=== PATIENT | female | born 1955 | race Caucasian/White ===

== ENCOUNTER 2016-07-14 12:35 | Observation (INO) | payer OTHER ==
[~2016-07-14] VITALS: Ht 158.1 cm; Wt 79.2 kg
[~2016-07-14 12:35] MED LIST: ASPI-113 PO; CHOL1000 PO; LEVO137T3 PO; LORA0.5T12 PO; MELO15TA10 PO; MGN PO; MULTTAB58 PO; OXYC20TA50 PO; PANT40TA PO; PARO1TAB27 PO
--- NOTE | 2016-07-14 14:45 | EMERGENCY ROOM VISIT NOTE ---
History Report prepared by Eleno: Patricia Gambino Under the Supervision of: Dr. Anup Lamb M.D. First contact with patient: 14:27 Chief Complaint: DIZZY Stated Complaint: DIZZY, SOB, HAND NUMB, HOT FLASHES Nursing Triage Summary: Pt c/o dizziness, off and on for months. Was scheduled for heart catheterization in [place] tomorrow. Pt states she was having symptoms for which she was treated for Lyme disease, test came back negative. Last night had blurred vision while bowling. History of Present Illness The patient is a 60 year old female who presents to the Emergency Room with complaints of intermittent dizziness episodes over the past several months. The patient states that during the episodes she also feels short of breath, tired, and diaphoretic. She also occasionally will have numbness in her legs, hands, or face, but she does not have numbness during every episode. Per patient's , the patient seems to be very diaphoretic after walking short distances. The patient was worked up by Dr. Saravia and had a stress test and echocardiogram. At points during the stress test she felt sweaty and short of breath. Dr. Saravia was concerned that something was going on but he is not sure what. She was referred to [place] for a catheterization but has yet to schedule it because of insurance issues. The patient also had a left leg ultrasound due to swelling which was unrevealing. Her leg is still swollen. Last night the patient started having an episode of the previously described symptoms. She woke up during the night twice feeling short of breath despite wearing a C-pap. She also notes that her legs got hot and then numb and her face was numb. She called Dr. Saravia's office about her symptoms and was referred to the ER. En route to the ER, she notes that she had some chest pressure. She is not a smoker. The patient is on Paxil, Protonix, and lorazepam. She does not take any inhalers. Per patient's , the patient had 2 bites on her leg this past January and was tested for Lyme 3 weeks ago which was negative. She was put on Doxycycline for 14 days at that time. She finished it Wednesday. She did not have any adverse reactions while on antibiotics. She does not recall a significant family history of heart disease. Source of History: patient Onset: several months ago Position: other (global) Quality: other (dizzy) Timing: intermittent Associated Symptoms: + SOB, + diaphoresis, + fatigue, + numbness Review of Systems See HPI for pertinent positives & negatives. A total of 10 systems reviewed and were otherwise negative. Past Medical & Surgical Medical Problems: (1) Chest pain (2) Chronic interstitial cystitis (3) HYPOTHYROIDISM NOS Family History Alzheimer's disease Social History Smoking Status: Never Smoker Marital Status: Housing Status: lives with significant other Current/Historical Medications Scheduled Cholecalciferol (Vitamin D3), 2,000 INTER.UNIT PO DAILY Levothyroxine Sodium (Synthroid), 125 MCG PO DAILY Magnesium Oxide (Mag-Ox), 400 MG PO Q2D Magnesium Oxide (Mag-Ox), 800 MG PO Q2D Meloxicam (Mobic), 15 MG PO DAILY Multiple Vitamin (Multivitamin), 1 TAB PO DAILY Pantoprazole (Protonix), 40 MG PO BID Paroxetine (Paxil), 20 MG PO BID Scheduled PRN Lorazepam (Lorazepam), 0.5 MG PO Q8H PRN Allergies Coded Allergies: Pentosan Polysulfate (Verified Allergy, Mild, 07/14/16) Amitriptyline (Verified Allergy, Unknown, 07/14/16) Latex1 -Allergic Contact Dermititis (Verified Allergy, Unknown, 07/14/16) Terbinafine (Verified Allergy, Unknown, 07/14/16) Verapamil (Verified Allergy, Unknown, 07/14/16) Aspirin (Verified Adverse Reaction, Mild, GI UPSET, 07/14/16) GI UPSET Codeine (Verified Adverse Reaction, Mild, N/V, 07/14/16) N/V Morphine (Verified Adverse Reaction, Mild, N/V, 07/14/16) N/V Physical Exam Vital Signs Date Time Temp Pulse Resp B/P Pulse Ox O2 Delivery O2 Flow Rate FiO2 07/14/16 21:08 88 19 116/82 98 07/14/16 20:41 88 19 116/82 98 Room Air 07/14/16 18:19 84 18 136/91 96 Room Air 07/14/16 17:05 83 07/14/16 16:58 88 20 115/70 94 Room Air 07/14/16 15:23 83 18 125/87 100 Room Air 07/14/16 15:19 100 Room Air 07/14/16 15:19 100 Room Air 07/14/16 14:42 82 18 129/92 95 Room Air 07/14/16 12:48 36.7 106 20 149/93 97 Room Air Physical Exam GENERAL: Patient is a healthy-appearing well-nourished 60 year old female HEAD: Normocephalic atraumatic EYES: Ocular movements intact pupils equal and react to light OROPHARYNX mucous membranes are moist no exudates present no erythema or edema present NECK: Supple no nuchal rigidity CHEST: Good equal expansion LUNGS: Clear and equal to auscultation CARDIAC: Normal S1 and S2 ABDOMEN: Soft nontender no guarding BACK: No CVA tenderness EXTREMITIES: No pain upon palpation normal muscle strength in all groups no clubbing cyanosis or edema NEURO: Patient is following commands is answering questions appropriately. Alert and oriented x3 Cranial Nerves 2-12 grossly intact Medical Decision & Procedures ER Provider Diagnostic Interpretation: Radiology results as stated below per my review and radiologist interpretation: CHEST ONE VIEW PORTABLE CLINICAL HISTORY: Chest pain. COMPARISON STUDY: Chest radiograph March 10, 2013. FINDINGS: Lung volumes are normal. Lungs are clear. There is no pneumothorax or pleural effusion. Cardiac size is normal. Mediastinal contours are normal. There is no evidence of pulmonary edema. IMPRESSION: No acute cardiopulmonary findings. Electronically signed by: Oscar Campos M.D. 07/14/2016 3:00 PM Dictated Date/Time: 07/14/2016 2:59 PM ULTRASOUND LEFT LOWER EXTREMITY VENOUS CLINICAL HISTORY: Left leg pain. COMPARISON STUDY: No priors. TECHNIQUE: Real-time, grayscale, and color Doppler sonography of the deep veins of the left lower extremity was performed from the inguinal crease to the calf. Compression and augmentation were utilized. FINDINGS: There is no sonographic evidence of deep venous thrombosis identified in the left lower extremity. The common femoral, superficial femoral, and popliteal veins are patent and normally compressible. The greater saphenous vein and the profunda femoris vein at the junction with the common femoral vein are clear. The visualized calf veins are patent. There is a small complex hypoechoic ovoid nodular structure identified in the medial left calf indicated site of interest. This measures 2.9 x 0.8 x 2.0 cm, and internal flow is shown on color imaging. This may be intramuscular in location. IMPRESSION: 1. There is no sonographic evidence of deep venous thrombosis identified in the left lower extremity. 2. There is a 2.9 cm heterogeneously hypoechoic nodular structure in the medial left calf. There is minimal internal flow suggested on color imaging. A soft tissue lesion such as a nerve sheath tumor is not excluded. Clinical correlation will be required. This lesion is reportedly palpable, and if clinically warranted a nonemergent contrast-enhanced MRI could be considered for further interrogation. Electronically signed by: Willis Randle M.D. 07/14/2016 4:15 PM Dictated Date/Time: 07/14/2016 4:10 PM Laboratory Results 07/14/16 15:20 Red Blood Count 4.55, Mean Corpuscular Volume 93.4, Mean Corpuscular Hemoglobin 32.7, Mean Corpuscular Hemoglobin Concent 35.1, Mean Platelet Volume 9.4, Neutrophils (%) (Auto) 57.3, Lymphocytes (%) (Auto) 31.1, Monocytes (%) (Auto) 9.4, Eosinophils (%) (Auto) 2.0, Basophils (%) (Auto) 0.0, Neutrophils # (Auto) 3.46, Lymphocytes # (Auto) 1.88, Monocytes # (Auto) 0.57, Eosinophils # (Auto) 0.12, Basophils # (Auto) 0.00 07/14/16 15:20 Test 07/14/16 15:20 07/14/16 15:24 07/14/16 15:32 White Blood Count 6.04 K/uL (4.8-10.8) Red Blood Count 4.55 M/uL (4.2-5.4) Hemoglobin 14.9 g/dL (12.0-16.0) Hematocrit 42.5 % (37-47) Mean Corpuscular Volume 93.4 fL (80-100) Mean Corpuscular Hemoglobin 32.7 pg (25-34) Mean Corpuscular Hemoglobin Concent 35.1 g/dl (32-36) Platelet Count 297 K/uL (130-400) Mean Platelet Volume 9.4 fL (7.4-10.4) Neutrophils (%) (Auto) 57.3 % Lymphocytes (%) (Auto) 31.1 % Monocytes (%) (Auto) 9.4 % Eosinophils (%) (Auto) 2.0 % Basophils (%) (Auto) 0.0 % Neutrophils # (Auto) 3.46 K/uL (1.4-6.5) Lymphocytes # (Auto) 1.88 K/uL (1.2-3.4) Monocytes # (Auto) 0.57 K/uL (0.11-0.59) Eosinophils # (Auto) 0.12 K/uL (0-0.5) Basophils # (Auto) 0.00 K/uL (0-0.2) RDW Standard Deviation 45.2 fL (36.4-46.3) RDW Coefficient of Variation 13.3 % (11.5-14.5) Immature Granulocyte % (Auto) 0.2 % Immature Granulocyte # (Auto) 0.01 K/uL (0.00-0.02) Est Creatinine Clear Calc Drug Dose 52.8 ml/min Estimated GFR () 62.8 Estimated GFR (Non- 54.1 BUN/Creatinine Ratio 15.6 (10-20) Calcium Level 9.1 mg/dl (8.5-10.1) Total Bilirubin 0.4 mg/dl (0.2-1) Direct Bilirubin < 0.1 mg/dl (0-0.2) Aspartate Amino Transf (AST/SGOT) 26 U/L (15-37) Alanine Aminotransferase (ALT/SGPT) 32 U/L (12-78) Alkaline Phosphatase 91 U/L (45-117) Total Creatine Kinase 103 U/L (26-192) Creatine Kinase MB 0.8 ng/ml (0.5-3.6) Creatine Kinase MB Ratio 0.8 (0-3.0) Troponin I < 0.015 ng/ml (0-0.045) Total Protein 8.0 gm/dl (6.4-8.2) Albumin 3.9 gm/dl (3.4-5.0) Lipase 163 U/L (73-393) Lyme Disease IgG Antibody NEG (NEG) Lyme Disease IgM Antibody NEG (NEG) Monoscreen NEG (NEG) Bedside Hemoglobin 15.0 g/dl (12.0-16.0) Bedside Hematocrit 44 % (37-47) Bedside Sodium 141 mEq/L (135-144) Bedside Potassium 4.1 mEq/L (3.3-5.0) Bedside Chloride 104 mEq/L (101-112) Bedside Total CO2 25 mEq/l (24-31) Anion Gap 18.0 mmol/L (16-25) Bedside Blood Urea Nitrogen 19 mg/dl (7-18) Bedside Creatinine 0.9 mg/dl (0.6-1.3) Bedside Glucose (other) 106 mg/dl (70-99) Bedside Ionized Calcium (Roxanne) 1.18 mmol/l (1.12-1.32) Bedside D-Dimer 333 ng/mlFEU (0-450) Labs reviewed by ED physician. Medications Administered Medications (Trade) Dose Ordered Sig/Hossein Route Start Time Stop Time Status Last Admin Dose Admin Albuterol/ Ipratropium (Duoneb) 3 ml NOW STAT INH 07/14/16 14:51 07/14/16 14:52 DC 07/14/16 15:13 3 ML Acetaminophen (Tylenol Tab) 1,000 mg NOW STAT PO 07/14/16 17:37 07/14/16 17:38 DC 07/14/16 20:47 1,000 MG Pantoprazole Sodium (Protonix Tab) 40 mg BID PO 07/14/16 21:00 08/13/16 20:59 07/14/16 22:12 40 MG Paroxetine HCl (pAXil TAB) 20 mg BID PO 07/14/16 21:00 08/13/16 20:59 07/14/16 22:12 20 MG ECG Indication: SOB/dyspnea Rate (beats per minute): 78 Rhythm: normal sinus Findings: no acute ischemic change, no ectopy ED Course 1431: Past medical records reviewed. The patient was evaluated in room C12B. A complete history and physical examination was performed. 1451: Ordered DuoNeb 3 ml INH. 1737: Upon reexamination the patient is resting comfortably. I discussed results and treatment plan with the patient. She verbalizes agreement and understanding. Ordered Tylenol Tab 1000 mg PO. 1805: I discussed the case with Dr. Bashir [facility]. He said to speak with internal medicine about the patient. 1840: I discussed the case with Dr. Stout - [facility]. The patient will be evaluated for further management. Medical Decision Differential diagnosis: Etiologies such as cardiac ischemia, aortic dissection, pulmonary embolism, pneumonia, pneumothorax, musculoskeletal, infections, pericarditis, myocarditis , esophageal rupture, gastrointestinal, as well as others were entertained. This is a 60-year-old female who presents emergency department complaining of hot flashes along with chest pain. The problem has been going on for the past several months. In addition the patient apparently had an abnormal stress test performed by cardiology as an outpatient. She was expected to follow-up with [place] however she has been having palpitations throughout the evening. She has a negative d-dimer chest x-ray does not show any acute evidence of pneumonia or pneumothorax. CK-MB troponin functions are all normal. I gave the patient the option of following up with cardiology tomorrow however she is asking to be admitted. I did discuss the case with both cardiology as well as the hospitalist service who agreed to admit the patient. Patient and were in agreement with the treatment plan. Consults Time Called: 1740 Consulting Physician: Dr. Bashir [facility] Returned Call: [phone] I discussed the case with him. He said to speak with internal medicine about the patient. Additional Consults: Time Called: [phone] Consulted Physician: Dr. Girish Woods [facility] Returned Call: [phone] Additional Comments: I discussed the case with him. The patient will be evaluated for further management. Impression Primary Impression: Precordial chest pain Scribe Attestation The scribe's documentation has been prepared under my direction and personally reviewed by me in its entirety. I confirm that the note above accurately reflects all work, treatment, procedures, and medical decision making performed by me. Departure Information Dispostion Being Evaluated By Hospitalist Referrals Rich Bearedn M.D. (PCP) Patient Instructions My [facility]
[2016-07-14] MEDS ORDERED: ALBUT/IPRATROP 3MG/0.5MG NEB 3 ML VIAL INH STA (14:51)
[2016-07-14] MEDS ORDERED: LEVO125T72 PO (14:56)
[2016-07-14] MEDS ORDERED: MAGN400T6 PO (14:56)
--- NOTE | 2016-07-14 15:01 | DIAGNOSTIC IMAGING REPORT ---
CHEST ONE VIEW PORTABLE CLINICAL HISTORY: Chest pain. COMPARISON STUDY: Chest radiograph March 10, 2013. FINDINGS: Lung volumes are normal. Lungs are clear. There is no pneumothorax or pleural effusion. Cardiac size is normal. Mediastinal contours are normal. There is no evidence of pulmonary edema. IMPRESSION: No acute cardiopulmonary findings. Electronically signed by: Oscar Campos M.D. 07/14/2016 3:00 PM Dictated Date/Time: 07/14/2016 2:59 PM
[2016-07-14 15:48] LABS: ISTAT CREATININE 0.9 mg/dl (0.6-1.3); ISTAT IONIZED CALCIUM 1.18 mmol/l (1.12-1.32)
[2016-07-14 15:54] LABS: COMPLETE YES; HEMATOCRIT 42.5 % (37-47); IG% 0.2 %; LYMPH % 31.1 %; LYMPH ABS # 1.88 K/uL (1.2-3.4); MEAN CELL VOLUME 93.4 fL (80-100); MEAN CORPUSCULAR HEMOGLOBIN 32.7 pg (25-34); MEAN CORPUSCULAR HGB CONC 35.1 g/dl (32-36); MEAN PLATELET VOLUME 9.4 fL (7.4-10.4); MONO % 9.4 %; NEUT % 57.3 %; PLATELET COUNT 297 K/uL (130-400); RED BLOOD COUNT 4.55 M/uL (4.2-5.4); WHITE BLOOD COUNT 6.04 K/uL (4.8-10.8)
[2016-07-14 16:03] LABS: ALT/SGPT 32 U/L (12-78); BLOOD UREA NITROGEN 17 mg/dl (7-18); BUN/CREATININE RATIO 15.6 (10-20); CALCIUM 9.1 mg/dl (8.5-10.1); CARBON DIOXIDE 24 mmol/L (21-32); CHLORIDE 106 mmol/L (98-107); GLUCOSE 100 mg/dl (70-99); SODIUM 141 mmol/L (136-145)
[2016-07-14 16:08] LABS: ALKALINE PHOSPHATASE 91 U/L (45-117); AST/SGOT 26 U/L (15-37); CKMB/CK RATIO 0.8 (0-3.0)
--- NOTE | 2016-07-14 16:16 | DIAGNOSTIC IMAGING REPORT ---
ULTRASOUND LEFT LOWER EXTREMITY VENOUS CLINICAL HISTORY: Left leg pain. COMPARISON STUDY: No priors. TECHNIQUE: Real-time, grayscale, and color Doppler sonography of the deep veins of the left lower extremity was performed from the inguinal crease to the calf. Compression and augmentation were utilized. FINDINGS: There is no sonographic evidence of deep venous thrombosis identified in the left lower extremity. The common femoral, superficial femoral, and popliteal veins are patent and normally compressible. The greater saphenous vein and the profunda femoris vein at the junction with the common femoral vein are clear. The visualized calf veins are patent. There is a small complex hypoechoic ovoid nodular structure identified in the medial left calf indicated site of interest. This measures 2.9 x 0.8 x 2.0 cm, and internal flow is shown on color imaging. This may be intramuscular in location. IMPRESSION: 1. There is no sonographic evidence of deep venous thrombosis identified in the left lower extremity. 2. There is a 2.9 cm heterogeneously hypoechoic nodular structure in the medial left calf. There is minimal internal flow suggested on color imaging. A soft tissue lesion such as a nerve sheath tumor is not excluded. Clinical correlation will be required. This lesion is reportedly palpable, and if clinically warranted a nonemergent contrast-enhanced MRI could be considered for further interrogation. Electronically signed by: Willis Randle M.D. 07/14/2016 4:15 PM Dictated Date/Time: 07/14/2016 4:10 PM
[2016-07-14 16:36] LABS: LYME DISEASE AB IGG NEG (NEG); LYME DISEASE AB IGM NEG (NEG)
[2016-07-14] MEDS ORDERED: ACETAMINOPHEN 500 MG TAB PO STA (17:37)
[2016-07-14] MEDS ORDERED: NITROGLYCERIN 0.4 MG SL PER TAB CHARGE SL PRN (19:30)
[2016-07-14] MEDS ORDERED: ONDANSETRON INJ 2 MG/ML 2 ML VIAL IV PRN (19:30)
[2016-07-14] MEDS ORDERED: LORAZEPAM 0.5 MG TAB PO PRN (19:30)
[2016-07-14] MEDS ORDERED: ALUMINUM/MAGNESIUM/SIMETH (MAALOX MAX) 30 ML UDC PO PRN (19:30)
[2016-07-14] MEDS ORDERED: POLYETHYLENE (MIRALAX) 17 GM PACK PO PRN (19:30)
--- NOTE | 2016-07-14 20:12 | History and Physical ---
History & Physical Date & Time of Service: Jul 14, 2016 at 19:35 Chief Complaint: Dizzy, Sob, Hand Numb, Hot Flashes Primary Care Physician: Rich Bearden M.D. History of Present Illness Source: patient, family This is a 60 yo F with PMHx of MITCH on cpap, GERD, anxiety with hx of panic attacks, fibromyalgia, intermittent chest pain worked up by Dr. Quinn as outpatient, chronic interstitial cystitis, and hypothyroidism who presents with left sided chest pain pressure, worsening shortness of breath, easy fatigue with ADLs, diaphoresis, hand and arm tingling/numbness. She feels that she gets easily sweaty and lightheaded after walking short distances. She must sit down and not move for her symptoms to resolve. She notes these same symptoms have been happening on and off for several months now. She recently had a stress test performed in May 2016 without definite findings for causing her sx. Her last Echo was done in Mar 2016 with preserved EF and without acute findings. She was supposed to have a cardiac cath completed at [place] tomorrow but insurance would not cover it. Pt reports she was instructed by Dr. Quinn to come here to the ED for worsening symptoms. Initial Trop is negative.Labs are unremarkable. EKG is NSR without ST wave changes or signs of ischemia. Past Medical/Surgical History Medical Problems: (1) Chronic interstitial cystitis Status: Chronic (2) HYPOTHYROIDISM NOS Status: Chronic 3. MITCH on cpap 4. GERD 5. Anxiety 6. Depression 7. Fibromyalgia Family History Alzheimer's disease Social History Smoking Status: Never Smoker Smokeless Tobacco Use: No Alcohol Use: none Drug Use: none Marital Status: Housing status: lives with family Immunizations History of Influenza Vaccine: No Influenza Vaccine Date: Apr 03, 2008 History of Tetanus Vaccine?: Yes Tetanus Immunization Date: Oct 03, 2007 History of Pneumococcal: No History of Hepatitis B Vaccine: No Multi-Drug Resistant Organisms History of MDRO: No Allergies Coded Allergies: Pentosan Polysulfate (Verified Allergy, Mild, 07/14/16) Amitriptyline (Verified Allergy, Unknown, 07/14/16) Latex1 -Allergic Contact Dermititis (Verified Allergy, Unknown, 07/14/16) Terbinafine (Verified Allergy, Unknown, 07/14/16) Verapamil (Verified Allergy, Unknown, 07/14/16) Aspirin (Verified Adverse Reaction, Mild, GI UPSET, 07/14/16) GI UPSET Codeine (Verified Adverse Reaction, Mild, N/V, 07/14/16) N/V Morphine (Verified Adverse Reaction, Mild, N/V, 07/14/16) N/V Home Medications Scheduled Cholecalciferol (Vitamin D3), 2,000 INTER.UNIT PO DAILY Levothyroxine Sodium (Synthroid), 125 MCG PO DAILY Magnesium Oxide (Mag-Ox), 400 MG PO Q2D Magnesium Oxide (Mag-Ox), 800 MG PO Q2D Meloxicam (Mobic), 15 MG PO DAILY Multiple Vitamin (Multivitamin), 1 TAB PO DAILY Pantoprazole (Protonix), 40 MG PO BID Paroxetine (Paxil), 20 MG PO BID Scheduled PRN Lorazepam (Lorazepam), 0.5 MG PO Q8H PRN Review of Systems Constitutional: No chills, No fever, No weakness Eyes: No problem reported ENT: No problem reported Respiratory: + dyspnea on exertion, + shortness of breath, No cough, No dyspnea at rest, No sputum Cardiovascular: No edema, No orthopnea, No palpitations Abdomen: + nausea, No pain, No vomiting Musculoskeletal: + calf pain (LLE), No joint pain, No swelling Genitourinary - Female: + problem reported (interstitial cystitis) Neurologic: + numbness/tingling (as per HPI) Psychiatric: + anxiety Endocrine: + fatigue Integumentary: No itch, No rash Physical Exam Vital Signs Date Time Temp Pulse Resp B/P Pulse Ox O2 Delivery O2 Flow Rate FiO2 07/14/16 18:19 84 18 136/91 96 Room Air 07/14/16 17:05 83 07/14/16 16:58 88 20 115/70 94 Room Air 07/14/16 15:23 83 18 125/87 100 Room Air 07/14/16 15:19 100 Room Air 07/14/16 15:19 100 Room Air 07/14/16 14:42 82 18 129/92 95 Room Air 07/14/16 12:48 36.7 106 20 149/93 97 Room Air General Appearance: WD/WN, no apparent distress, + obese Head: normocephalic, atraumatic Eyes: PERRL, EOMI ENT: hearing grossly normal, pharynx normal Neck: supple, no JVD Respiratory/Chest: chest non-tender, lungs clear, normal breath sounds, no respiratory distress, no accessory muscle use Cardiovascular: regular rate, rhythm, no murmur, normal peripheral pulses Abdomen/GI: normal bowel sounds, non tender, soft Back: no CVA tenderness Extremities/Musculoskelatal: no calf tenderness, no pedal edema, + pertinent finding (LLE tenderness medial posterior portion of the ankle.) Neurologic/Psych: alert, normal mood/affect, oriented x 3 Skin: normal color, warm/dry Diagnostics Laboratory Results Results Past 24 Hours Test 07/14/16 15:20 07/14/16 15:24 07/14/16 15:32 Range/Units White Blood Count 6.04 4.8-10.8 K/uL Red Blood Count 4.55 4.2-5.4 M/uL Hemoglobin 14.9 12.0-16.0 g/dL Hematocrit 42.5 37-47 % Mean Corpuscular Volume 93.4 80-100 fL Mean Corpuscular Hemoglobin 32.7 25-34 pg Mean Corpuscular Hemoglobin Concent 35.1 32-36 g/dl Platelet Count 297 130-400 K/uL Mean Platelet Volume 9.4 7.4-10.4 fL Neutrophils (%) (Auto) 57.3 % Lymphocytes (%) (Auto) 31.1 % Monocytes (%) (Auto) 9.4 % Eosinophils (%) (Auto) 2.0 % Basophils (%) (Auto) 0.0 % Neutrophils # (Auto) 3.46 1.4-6.5 K/uL Lymphocytes # (Auto) 1.88 1.2-3.4 K/uL Monocytes # (Auto) 0.57 0.11-0.59 K/uL Eosinophils # (Auto) 0.12 0-0.5 K/uL Basophils # (Auto) 0.00 0-0.2 K/uL RDW Standard Deviation 45.2 36.4-46.3 fL RDW Coefficient of Variation 13.3 11.5-14.5 % Immature Granulocyte % (Auto) 0.2 % Immature Granulocyte # (Auto) 0.01 0.00-0.02 K/uL Sodium Level 141 136-145 mmol/L Potassium Level 4.0 3.5-5.1 mmol/L Chloride Level 106 98-107 mmol/L Carbon Dioxide Level 24 21-32 mmol/L Anion Gap 11.0 18.0 16-25 mmol/L Blood Urea Nitrogen 17 7-18 mg/dl Creatinine 1.10 0.60-1.20 mg/dl Est Creatinine Clear Calc Drug Dose 52.8 ml/min Estimated GFR () 62.8 Estimated GFR (Non- 54.1 BUN/Creatinine Ratio 15.6 10-20 Random Glucose 100 70-99 mg/dl Calcium Level 9.1 8.5-10.1 mg/dl Total Bilirubin 0.4 0.2-1 mg/dl Direct Bilirubin < 0.1 0-0.2 mg/dl Aspartate Amino Transf (AST/SGOT) 26 15-37 U/L Alanine Aminotransferase (ALT/SGPT) 32 12-78 U/L Alkaline Phosphatase 91 45-117 U/L Total Creatine Kinase 103 26-192 U/L Creatine Kinase MB 0.8 0.5-3.6 ng/ml Creatine Kinase MB Ratio 0.8 0-3.0 Troponin I < 0.015 0-0.045 ng/ml Total Protein 8.0 6.4-8.2 gm/dl Albumin 3.9 3.4-5.0 gm/dl Lipase 163 73-393 U/L Lyme Disease IgG Antibody NEG NEG Lyme Disease IgM Antibody NEG NEG Monoscreen NEG NEG Bedside Hemoglobin 15.0 12.0-16.0 g/dl Bedside Hematocrit 44 37-47 % Bedside Sodium 141 135-144 mEq/L Bedside Potassium 4.1 3.3-5.0 mEq/L Bedside Chloride 104 101-112 mEq/L Bedside Total CO2 25 24-31 mEq/l Bedside Blood Urea Nitrogen 19 7-18 mg/dl Bedside Creatinine 0.9 0.6-1.3 mg/dl Bedside Glucose (other) 106 70-99 mg/dl Bedside Ionized Calcium (Roxanne) 1.18 1.12-1.32 mmol/l Bedside D-Dimer 333 0-450 ng/mlFEU Diagnostic Radiology CHEST ONE VIEW PORTABLE CLINICAL HISTORY: Chest pain. COMPARISON STUDY: Chest radiograph March 10, 2013. FINDINGS: Lung volumes are normal. Lungs are clear. There is no pneumothorax or pleural effusion. Cardiac size is normal. Mediastinal contours are normal. There is no evidence of pulmonary edema. IMPRESSION: No acute cardiopulmonary findings. Electronically signed by: Oscar Campos M.D. 07/14/2016 3:00 PM Dictated Date/Time: 07/14/2016 2:59 PM The status of this report is Signed. ULTRASOUND LEFT LOWER EXTREMITY VENOUS CLINICAL HISTORY: Left leg pain. COMPARISON STUDY: No priors. TECHNIQUE: Real-time, grayscale, and color Doppler sonography of the deep veins of the left lower extremity was performed from the inguinal crease to the calf. Compression and augmentation were utilized. FINDINGS: There is no sonographic evidence of deep venous thrombosis identified in the left lower extremity. The common femoral, superficial femoral, and popliteal veins are patent and normally compressible. The greater saphenous vein and the profunda femoris vein at the junction with the common femoral vein are clear. The visualized calf veins are patent. There is a small complex hypoechoic ovoid nodular structure identified in the medial left calf indicated site of interest. This measures 2.9 x 0.8 x 2.0 cm, and internal flow is shown on color imaging. This may be intramuscular in location. IMPRESSION: 1. There is no sonographic evidence of deep venous thrombosis identified in the left lower extremity. 2. There is a 2.9 cm heterogeneously hypoechoic nodular structure in the medial left calf. There is minimal internal flow suggested on color imaging. A soft tissue lesion such as a nerve sheath tumor is not excluded. Clinical correlation will be required. This lesion is reportedly palpable, and if clinically warranted a nonemergent contrast-enhanced MRI could be considered for further interrogation. Electronically signed by: Willis Randle M.D. 07/14/2016 4:15 PM Dictated Date/Time: 07/14/2016 4:10 PM The status of this report is Signed. EKG Vent. rate 78 BPM OR interval 150 ms QRS duration 84 ms QT/QTc 370/421 ms P-R-T axes 45 -[address] wave abnormalities or ischemic changes Impression Assessment and Plan This is a 60 yo F with PMHx of MITCH on cpap, GERD, anxiety with hx of panic attacks, fibromyalgia, intermittent chest pain worked up by Dr. Quinn as outpatient, chronic interstitial cystitis, and hypothyroidism who presents with left sided chest pain pressure, worsening shortness of breath, easy fatigue with ADLs, diaphoresis, hand and arm tingling/numbness. Chest Pain/ Shortness of breath/ presyncopal episodes with associated warm sensation and lightheadedness/ decline in physical exercise capacity - Tele obs - Last stress test completed on 05/21/16 which showed deconditioned hemodynamic response to exercise. Heart rate recovery at 1 min was 34 bpm. Normal LV wall motion response to exercies. Left ventricle becomes smaller and more vigorous with exercise. Improved global left ventricular function with exercise. Conclusions: negative exercise ECG for ischemia. Negative stres echocardiogram for ischemia at 103 %MPHR. Below average exericse tolerance for age and gender, 83% of predicted, achieving 5.7 METs. - Last ECHO completed 03/11/2016 wit LVEF of 65%, normal LV size and systolic function with no regional wall motion abnormalities. No ventricular hypertrophy. Grade 1 diastolic dysfunction of the left ventricle (impaired relaxation patterm). Hypermobile intra atrial septum c/w atrial septal aneurysm. - Follows with Dr. Quinn as an outpatient At last visit he was considering a coronary CT angiograpy to rule out obstructive coronary disease, and also suggested she'd benefit from toprol-Xl to try to slow HR, improve diastolic filling, and improve her forward stroke volume with activity - 1st troponin is negative. Will trend with CKMB to r/o cardiac event although this is unlikely - EKG was reviewed; NSR without ischemic or ST wave changes or inversions. Obstructive Sleep Apnea - Uses nocturnal cpap Depression/Anxiety: - Cont lorazepam 0.5 mg TID prn for anxiety - Cont Prozac 20 mg BID GERD- continue protonix Interstitial Cystitis, nephritis - Follow with urology - Currently without complaints regarding dysuria, hematuria DVT ppx: SCDs, OOB CODE STATUS: FULL CODE Disposition: From home. Level of Care Telemetry Resuscitation Status FULL RESUSCITATION VTE Prophylaxis VTE Risk Assessment Done? Y/N: Yes Risk Level: Low Given or contraindicated: SCD's Reviewed: Pt Seen/Exam by Me, RN Notes, HO Notes, Prior Records, Labs, RAD History I agree with PA H&P with some modifications as below This is a 60 yo F with PMHx of MITCH on cpap, GERD, anxiety with hx of panic attacks, fibromyalgia, intermittent chest pain worked up by Dr. Quinn as outpatient, chronic interstitial cystitis, and hypothyroidism who presents with left sided chest pain pressure, worsening shortness of breath, easy fatigue with ADLs, diaphoresis, hand and arm tingling/numbness. Constitutional: denies: chills Respiratory: negative: cough Cardiovascular: denies chest pain Gastrointestinal/Abdominal: negative: abdominal pain Genitourinary: negative discharge Musculoskeletal: negative: back pain Neurological/Psych: negative: anxiety Hematologic/Lymphatic: negative: anemia General Appearance: WD/WN, no apparent distress Eye Exam: bilateral eye normal inspection Ears, Nose, Throat: hearing grossly normal, pharynx normal Neck: non-tender, supple Respiratory: lungs clear, normal breath sounds Cardiovascular: no edema, no gallop Gastrointestinal: normal bowel sounds, soft Extremities: non-tender, no pedal edema Neurologic/Psychiatric: alert Skin Characteristics: normal color Assessment/Plan This is a 60 yo F with PMHx of MITCH on cpap, GERD, anxiety with hx of panic attacks, fibromyalgia, intermittent chest pain worked up by Dr. Quinn as outpatient, chronic interstitial cystitis, and hypothyroidism who presents with left sided chest pain pressure, worsening shortness of breath, easy fatigue with ADLs, diaphoresis, hand and arm tingling/numbness. Chest Pain/ Shortness of breath/ presyncopal episodes with associated warm sensation and lightheadedness/ decline in physical exercise capacity admit tele Last stress test completed on 05/21/16 which showed deconditioned hemodynamic response to exercise. Heart rate recovery at 1 min was 34 bpm. Normal LV wall motion response to exercise. Left ventricle becomes smaller and more vigorous with exercise. Improved global left ventricular function with exercise. Conclusions: negative exercise ECG for ischemia. Negative stres echocardiogram for ischemia at 103 %MPHR. Below average exericse tolerance for age and gender, 83% of predicted, achieving 5.7 METs. Last ECHO completed 03/11/2016 wit LVEF of 65%, normal LV size and systolic function with no regional wall motion abnormalities. No ventricular hypertrophy. Grade 1 diastolic dysfunction of the left ventricle (impaired relaxation patterm). Hypermobile intra atrial septum c/w atrial septal aneurysm. Follows with Dr. Quinn as an outpatient, patient has appointment at [facility] tomorrow for cardiac cath, it was postponed due to insurance issues according to the patient will keep patient NPO PM At last visit he was considering a coronary CT angiograpy to rule out obstructive coronary disease, and also suggested she'd benefit from toprol-Xl to try to slow HR, improve diastolic filling, and improve her forward stroke volume with activity trend with CKMB to r/o cardiac event although this is unlikely EKG was reviewed; NSR without ischemic or ST wave changes or inversions. Obstructive Sleep Apnea Uses nocturnal cpap Depression/Anxiety: Cont lorazepam 0.5 mg TID prn for anxiety Cont Prozac 20 mg BID GERD, continue protonix Interstitial Cystitis, nephritis Follow with urology Currently without complaints regarding dysuria, hematuria DVT proph: SCDs, OOB CODE STATUS: FULL CODE Disposition: From home. case discussed with AYDE Sosa time spent 40 min
[2016-07-14] MEDS ORDERED: IV FLUIDS COMPLETED PRN (20:15)
[2016-07-14] MEDS ORDERED: ACETAMINOPHEN 500 MG TAB PO ONE (20:44)
[2016-07-14] MEDS: PANTOprazole SOD 40 MG TAB PO SCH (22:12)
[2016-07-14] MEDS: PAROXETINE 20 MG TAB PO SCH (22:12)
[2016-07-14 22:40] VITALS: BP 134/79; PULSE 91; TEMP 37; O2SAT 97; Ht 158.1 cm; Wt 79.2 kg
[2016-07-15] VITALS (13 sets, daily range): BP systolic 90–119; BP diastolic 62–77; PULSE 82–96; TEMP 36.4–37; O2SAT 95–97
[2016-07-15] MEDS ORDERED: LEVOTHYROXINE 125 MCG TAB PO SCH (06:30)
--- NOTE | 2016-07-15 07:18 | DIAGNOSTIC IMAGING REPORT ---
CT SCAN OF THE CERVICAL SPINE CLINICAL HISTORY: Hand numbness. Cervical stenosis. Dizziness. COMPARISON STUDY: Radiographs of the cervical spine dated 06/21/2008. TECHNIQUE: CT scan of the cervical spine is performed from the skull base to the upper thoracic spine. Images are reviewed in the axial, sagittal, and coronal planes. IV contrast was not administered for this examination. CT DOSE: 221.38 mGy.cm FINDINGS: Skeletal structures: The skeletal structures are osteopenic. There is no evidence of fracture or subluxation involving the cervical spine. Vertebral body height and alignment are maintained. There is straightening of the cervical lordosis. The odontoid process and lateral masses are intact. The atlantoaxial articulation is preserved noting productive degenerative change. The spinous processes appear intact. Small anterior osteophytes are noted in the lower cervical region. No significant facet arthropathy or neural foraminal stenosis is identified. Intervertebral discs: The disc spaces are well maintained. Central canal: Widely patent. Soft tissues: The prevertebral and paraspinous soft tissues are within normal limits. Calvarium: The visualized calvarium at the skull base appears intact. Brain parenchyma: Partially visualized brain parenchyma the skull base is within normal limits. Sinuses and mastoids: There is trace fluid within the right sphenoid sinus. The mastoid air cells are well pneumatized. Lung apices: Clear as visualized. IMPRESSION: There is no evidence of fracture or subluxation involving the cervical spine. Electronically signed by: Willis Randle M.D. 07/15/2016 7:16 AM Dictated Date/Time: 07/15/2016 7:13 AM
[2016-07-15] MEDS: PAROXETINE 20 MG TAB PO SCH (08:58)
[2016-07-15] MEDS: PANTOprazole SOD 40 MG TAB PO SCH (08:58)
[2016-07-15] MEDS ORDERED: MAGNESIUM OXIDE 400 MG TAB PO SCH (09:00)
[2016-07-15] MEDS: MELOXICAM 7.5 MG TAB PO SCH ×2 (09:00→14:02)
[2016-07-15] MEDS ORDERED: CHOLECALCIFEROL 1000 INTER.UNIT TAB PO SCH (09:00)
[2016-07-15] MEDS ORDERED: NiCARDipine HCL INJ 2.5 MG/ML 10 ML AMP ONE (10:36)
[2016-07-15] MEDS ORDERED: HEPARIN SOD (PORCINE) 1000 UNIT/ML 10 ML VIAL ONE (10:37)
[2016-07-15] MEDS ORDERED: MIDAZOLAM HCL 1 MG/ML 2ML VIAL ONE ×3 (10:37→11:55)
[2016-07-15] MEDS ORDERED: FENTANYL CITRATE INJ 50 MCG/1 ML 2 ML VIAL ONE ×2 (10:37→11:55)
[2016-07-15] MEDS ORDERED: NITROGLYCERIN/D5W 100MCG/ML 20ML SYR ONE (10:37)
--- NOTE | 2016-07-15 10:56 | CARDIOLOGY CONSULTATION ---
DATE OF CONSULTATION: 07/15/2016 DATE OF CONSULTATION: 07/15/2016. REQUESTING: Dr. Josué Acevedo. WEB ANALYST: Julian Quinn D.O., [facility]. Dear Josué: Thank you for requesting cardiology consultation on Missy with regards to her progressive shortness of breath, lightheadedness and dizziness with activity. As you know, she is a very pleasant 60-year-old female who we have seen as an outpatient with progressive dyspnea on exertion. She now notes even bowling 2 balls this past Wednesday she had profound shortness of breath, nausea, felt like she was going to vomit, weakness. She had to site for half hour before she recovered. Over the last 3 months it has become more and more progressive. She did undergo stress echocardiography as an outpatient which revealed no evidence of ischemia May 2016. Her RV size and function was normal and there was nothing to suggest pulmonary hypertension. Given her progressive symptoms which are actually witnessed in the office as we did an ultrasound to rule out a DVT last week which was negative, but she just getting her shoes and socks on she was profoundly short of breath. We are arranging for outpatient cardiac catheterization. Her insurance refused to pay for the catheterization and instead recommend that she have a coronary CT angiography and right heart catheterization instead. She called the office yesterday with even more progressive shortness of breath after Wednesday evening and we recommended she come to the Emergency Room for further evaluation. Her troponins are negative. Her EKG is normal. As discussed above, she notes progressive dyspnea. She denies any PND or orthopnea. She had 8/10 shortness of breath on the treadmill, but no ischemic changes. She denies any palpitations or fluttering. She does describe weight gain. She also described some additional sweating. She denies any lower extremity edema, symptoms of claudication. Her appetite is stable. She denies any bleeding, bruising, dark stools, black stools. She has some musculoskeletal discomfort. She has some discomfort between her shoulder blades as well. She had a previous cholecystectomy. The rest of review of systems otherwise negative. FAMILY HISTORY: Mom at 88 of dementia and cancer. Dad at 75 hip fracture. She has a brother who is living. SOCIAL HISTORY: She is . She denies any tobacco. She rarely drinks alcohol. She is a homemaker. Previously drove a school bus. PAST MEDICAL HISTORY: 1. Negative stress echo for ischemia May 2016 with normal left ventricular size and function, normal right ventricular size and function and no evidence of pulmonary hypertension. 2. Obstructive sleep apnea, tolerating CPAP. 3. Gastroesophageal reflux disease with a recently negative EGD. 4. Hypothyroidism. 5. History of panic attacks. 6. Anxiety. 7. Interstitial nephritis. 8. Fibromyalgia. ALLERGIES: TO RANITIDINE, AMITRIPTYLINE, CODEINE, ELMIRON, LATEX, MORPHINE, VERAPAMIL, ZOLOFT AND CODEINE. MEDICATIONS: Reviewed in electronic medical record. PHYSICAL EXAMINATION: GENERAL: She is awake, alert, oriented x3. She is in no acute distress, well-appearing female. VITAL SIGNS: Her pulse is 95, respirations 18, blood pressure 105/71. Her sats 97% on room air. HEAD, EYES, EARS, NOSE, AND THROAT: 1+ carotid upstrokes. No evidence of carotid bruits. Jugular venous pressure appeared normal. Sclerae is anicteric. Hearing is normal. LUNGS: Clear to auscultation bilaterally. No rales, rhonchi or wheezing. HEART: Regular rate and rhythm. No appreciable murmurs, rubs or gallops. ABDOMEN: Soft, nontender, nondistended, positive bowel sounds. EXTREMITIES: No clubbing, cyanosis or edema. PSYCHIATRIC: Affect appeared appropriate. NEUROLOGIC: Grossly nonfocal. EKG here normal sinus rhythm, normal ECG. LABORATORY DATA: Sodium 141, potassium 4.1, BUN 17, creatinine 1.1. Troponins are negative. Her AST and ALT are normal. Lipase is normal. Her D-dimer was 333. Chest x-ray no acute pulmonary findings. IMPRESSION: 1. Progressive shortness of breath and dyspnea on exertion with a significant decline in her exercise capacity. 2. Second set of symptoms with lightheadedness, dizziness, warm spells. 3. Swelling of her left calf which is negative for DVT by ultrasound. In discussion with Dr. Acevedo we are both in agreement that we should proceed with cardiac catheterization to rule out obstructive coronary artery disease and rule out pulmonary hypertension as a cause for her progressive dyspnea. Additionally, we will be able to assess her cardiac output and rule out low cardiac output state. She has had a number of additional laboratory studies including a negative Dubois screen and negative Lyme titer with EBV antibodies pending. Discussed risks and benefits of cardiac catheterization. Risks include but are not limited to bleeding or infection at the puncture site, damage to radial or femoral arteries, risk of contrast induced nephropathy, allergic reaction to contrast and 1 in 1,000 risk of heart attack, stroke or dying with the procedure were discussed. She understands the risk and wishes to proceed. This was all discussed with Dr. Mosquera and the laborer general staff. She has been n.p.o. after midnight. We thank you for allowing us to participate in her care. Further recommendations will be forthcoming. VALERIE
--- NOTE | 2016-07-15 11:04 | Procedure Note ---
Pre-Mod Sedation Assessment General Date of Moderate Sedation: Jul 15, 2016. Vital Signs: Vital Signs Past 12 Hours Date Time Temp Pulse Resp B/P Pulse Ox O2 Delivery O2 Flow Rate FiO2 07/15/16 08:00 96 Room Air 07/15/16 07:38 36.9 95 18 105/71 97 07/15/16 04:25 36.4 96 18 97/62 96 Room Air 07/15/16 04:00 96 Room Air 07/15/16 00:00 96 Room Air Review Cardiovascular: regular rate, rhythm, no edema, no gallop, no JVD, no murmur, normal peripheral pulses Abdomen: normal bowel sounds, non tender, soft Lungs: lungs clear Pre-Sedation Airway Assessment Oral Cavity: Dental Abnormalities Able to Visualize Vocal Cords: No Short Thick Neck: No Hx of Sleep Apnea: Yes Smoking Status: Never Smoker Mallampati Classification: Class III ASA Classification: Class II Procedure Planning Contraindications-for Mod Sed: None Yes Notes The planned sedation has been discussed with the patient and consent obtained. I have identified the patient, determined the appropriateness of sedation and have assessed the patient immediately prior to the procedure. All medicine(s) and interventions are by my order.
[2016-07-15 13:11] LABS: ISTAT ARTERIAL BLOOD GAS HCO3 23 meq/L (19-24); ISTAT ARTERIAL BLOOD GAS PCO2 46 mmHg (35-46); ISTAT ARTERIAL BLOOD GAS PO2 40 mmHg (80-95); ISTAT ARTERIAL BLOOD GAS pH 7.31 (7.35-7.45); ISTAT CARBON DIOXIDE 25 mEq/l (24-31)
--- NOTE | 2016-07-15 13:19 | Procedure Note ---
Post-Mod Sedation Assessment General Date of Moderate Sedation Jul 15, 2016. Vital Signs: Vital Signs Past 12 Hours Date Time Temp Pulse Resp B/P Pulse Ox O2 Delivery O2 Flow Rate FiO2 07/15/16 13:10 91 18 131/84 96 Room Air 07/15/16 13:05 92 17 124/83 98 Room Air 07/15/16 13:00 94 18 128/81 97 Room Air 07/15/16 08:00 96 Room Air 07/15/16 07:38 36.9 95 18 105/71 97 07/15/16 04:25 36.4 96 18 97/62 96 Room Air 07/15/16 04:00 96 Room Air Review - Discharge Criteria Vital Signs Stable: Yes Alert/Oriented/Conversant: Yes Returned to Baseline Mental St: Yes Nausea Absent/Minimal: Yes Pain/Discomfort/Absent/Minimal: Yes Normal/Baseline Respirations: Yes Active Bleeding?: No Pt Received D/C Instructions: N/A Prescriptions Given: None Specific Proced. D/C Criteria Distal Pulses Present (Cardiac: Yes Groin site assessed-Card Cath: Yes Voided Prior To Discharge: N/A Discharged Patients Adult Escort/Transportation: N/A
[2016-07-15] MEDS ORDERED: ATROPINE SULFATE 0.1 MG/ML 5ML SYR IV PRN (13:30)
[2016-07-15] MEDS ORDERED: ONDANSETRON INJ 2 MG/ML 2 ML VIAL IV PRN (13:30)
[2016-07-15] MEDS ORDERED: ACETAMINOPHEN 325 MG TAB PO PRN (13:30)
[2016-07-15 13:32] LABS: ISTAT ARTERIAL BLOOD GAS HCO3 25 meq/L (19-24); ISTAT ARTERIAL BLOOD GAS PCO2 43 mmHg (35-46); ISTAT ARTERIAL BLOOD GAS PO2 70 mmHg (80-95); ISTAT ARTERIAL BLOOD GAS pH 7.37 (7.35-7.45); ISTAT CARBON DIOXIDE 26 mEq/l (24-31)
[2016-07-15 13:32] LABS: ISTAT ARTERIAL BLOOD GAS HCO3 23 meq/L (19-24); ISTAT ARTERIAL BLOOD GAS PCO2 46 mmHg (35-46); ISTAT ARTERIAL BLOOD GAS PO2 45 mmHg (80-95); ISTAT ARTERIAL BLOOD GAS pH 7.31 (7.35-7.45); ISTAT CARBON DIOXIDE 24 mEq/l (24-31)
[2016-07-15] MEDS ORDERED: SODIUM CHLORIDE 0.9% 1000ML 1,000 ML IV SCH (13:45)
--- NOTE | 2016-07-15 13:47 | Cardiac Catheterization ---
Procedure Note Procedure Date Jul 15, 2016. 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 Julian Quinn for right and left heart catheterization and coronary angiography. Over the past few months she has had progressively worsening dyspnea on exertion. This is limiting her performance of even normal activities. A recent stress echocardiogram revealed normal LV systolic function. Normal echo response to stress. The patient presented to [facility] on the evening of July 14 complaining of severe dyspnea on exertion and at rest. She also complained of chest pressure and diaphoresis accompanying the dyspnea. She was admitted for observation. Cardiac enzymes were negative for myocardial injury. Cardiac catheterization was indicated to assess intracardiac pressures and for the presence of any significant underlying coronary artery disease. Was felt that her symptoms could be anginal equivalent symptoms. Catheterization site: 6 [place] slender glide sheath right radial artery. 7 [place] sheath right femoral vein. Catheters: 7 [place] latex-free [place] catheter for right heart catheterization (the patient has a latex allergy). Five [place] brachial 3.5 and pigtail catheters for coronary angiography, left heart catheterization, left ventricular angiography. Left heart catheterization and LV angiography were performed using the pigtail catheter. Hemostasis: Manual pressure right femoral venous site. Terumo TR band right radial artery site. Complications: None. Findings: The pressures in millimeter Hg : Rest aortic 107/63/84; LV 106/7; final aortic 109/58/82; RA 10/8/7; RV 30/7; pulmonary artery 30/13/21; pulmonary wedge 11/10/8. The cardiac output by the thermodilution method was 6.1 liters/minute. Cardiac index was 3.4 liters/minute per meter squared. The Brittani cardiac output was 6.6 liters/minute. Cardiac index by Brittani method was 3.6 liters/minute per meter squared. The pulmonary vascular resistance using the thermodilution cardiac output was 2.1 Calix units. The systemic vascular resistance was 12.7 Calix units. Oxygen saturations: AO 93 percent; PA 76 percent; RA 76 percent. Fluoroscopy did not reveal any coronary calcifications. The coronary circulation was right dominant. No obstructive coronary artery disease noted. Large caliber left main giving rise to medium caliber left anterior descending and left circumflex coronary arteries. The mid LAD was of small caliber. The distal LAD was of very small caliber. Very small caliber first diagonal and small caliber second diagonal. The left circumflex gave rise to very small caliber 1st and 2nd marginal arteries. It then gave rise to a long small to medium caliber 3rd marginal artery. The right coronary artery was a medium caliber vessel giving rise to small caliber posterior descending and posterolateral arteries. Left ventricular angiography performed from the 30 degree right anterior oblique projection revealed all LV segments to contract normally. The calculated left ventricular ejection fraction was 68 percent. No mitral regurgitation noted. Plan: The results were discussed with Dr. Quinn and with the patient's hospitalist Dr.Ryan Acevedo. Based on the catheterization results there is no evident cardiac etiology for her symptoms. A noncardiac etiology will now be considered. She will have continue medical follow-up with her primary care provider. Hemodynamics Rest Ao: 107/63/84 Final Ao: 109/58/82 LV: 106/7 RA: RV: 30/7 PA: 30/13/21 PW: Recommendations Medical therapy and/or Counseling Specimens None Radiation Exposure (mGy) 750 Contrast (mls) 110 ml Visipaque Fluids (cc crystalloids) 159 Drains none Anesthesia Intravenous Versed and fentanyl. Lidocaine 1 % for local anesthesia. Procedural Complication(s) None Disposition PCU ACC Data Cardiac Status Clinical evaluation leading to the procedure CAD Presntation: Unstable angina Anginal Classification: CCS IV Heart Failure: No Cardiogenic Shock w/in 24Hrs: No Cardiac Arrest w/in 24Hrs: No Imaging studies past 6 months: Yes Standard Exercise Stress Test: No Stress Echocardiogram: Yes - Negative Stress Testing w/SPECT MPI: No Cardiac CTA: No Coronary Anatomy Dominant: Right Left Main (% Stenosis): Normal LAD (% Stenosis): Normal D1 (% Stenosis): Normal D2 (% Stenosis): Normal Circumflex (% Stenosis): Normal OM1 (% Stenosis): Normal OM2 (% Stenosis): Normal OM3 (% Stenosis): Normal RCA (% Stenosis): Normal R PDA (% Stenosis): Normal R PL1 (% Stenosis): Normal R PL2 (% Stenosis): Normal Left Ventricular Angiography EF (%): 68 Wall Motion: Inferior (Normal), Apical (Normal), Anterior (Normal) Mitral Regurgitation: None Diagnostic Physician's Name: Keanu Mosquera M.D. Status: Elective Closure Device Percutaneous Entry Location: Right radial artery for arterial access. Right femoral vein for venous access. Closure Device: Radial Band Recommendations: Medical therapy and/or Counseling
--- NOTE | 2016-07-15 16:36 | Discharge Instructions ---
Discharge Instructions Admission Reason for Admission: Chest Pain Discharge Discharge Diagnosis / Problem: sweats/exertional fatigue and shortness of breath Discharge Goals Goal(s): Diagnostic testing Activity Recommendations Activity Limitations: resume your previous activity . Instructions / Follow-Up Instructions / Follow-Up as we discussed - with your heart cath being normal, we'll have to take a stepwise diagnostic approach to figuring this out a) blood pressure fluctuation or low oxygen numbers --if you were on blood pressure medication, your symptoms would sound like someone who's been "overtreated" - since you're not we'll need to screen for variability and drops in blood pressure -- so follow numbers incessantly over the next week - especially around the times you have symptoms (check during, and after - and frequently) --similarly but less likely - while this doesn't really sound like a pulmonary issue, if you were to have something going on pulmonary-south, it would likely manifest as low oxygen numbers with exertion - so as you're checking blood pressures, while oxygen numbers dropping are less likely with you, it makes sense to go ahead and check a pulse ox frequently as well ------follow these numbers closely for the next week - as often as you're having symptoms, if it isn't obviously related to blood pressure or oxygen numbers by then, it will be something that is for all intents and purposes "eliminated" b) tick borne illness - while your lyme titers have been negative, it's certainly possible that this could be related to something tick borne - especially because this is such an endemic area, and because you did feel a little better when you were on the doxycycline. if the blood pressure/oxygen workup yields nothing, it would be worth a re-trial of doxycycline for a month or so - this is well off the beaten path conventionally, to be honest, but since you did feel a little better on the doxy, it is well worth considering c) hormonal --knowing that things have felt weird since you stopped the hormone replacement therapy, and also knowing that you were told that your estrogen levels are high - this really represents two different possibilities. one would be if you're still in an odd way menopausal - which would best be determined by a therapeutic trial of hormone replacement. as we discussed, it does come with some risks - clots, heart attacks, and strokes-- but with your coronary arteries being clear, the heart attack and stroke risk is less, so it is worth considering a trial as well - especially with how miserable you've been. you had noted that your estrogen levels were reported as "high" -- this will also warrant further thought and discussion as a possible culprit -- continue to discuss w dr soler d) vitamin / nutrient - while unlikely - if you were profoundly deficient in something like B12, or iron - it could potentially cause symptoms like this just based on having to "over-exert to keep up with normal tasks" -- so we sent a number of labs before discharge that will be back to review with roseanne and dr soler they may have other hypotheses that appear to fit better with your symptoms than the ones we've outlined above --- if this is the case, then those hypotheses can "cut in line" -- but the strategy of looking at a possibility, fleshing it out, and then moving on to the next one until the problem is defined , should do well to get to the bottom of this. i'd want you being seen weekly for the foreseeable future to keep the pace on this kind of diagnostic "process of elimination" moving Current Hospital Diet Patient's current hospital diet: Regular Diet Discharge Diet Recommended Diet: Regular Diet Pending Studies Studies pending at discharge: yes List of pending studies: labs as above Medical Emergencies . Who to Call and When: Medical Emergencies: If at any time you feel your situation is an emergency, please call 911 immediately. . Non-Emergent Contact Non-Emergency issues call your: Primary Care Provider . . "Provider Documentation" section prepared by Josué Acevedo. VTE Core Measure Inpt VTE Proph given/why not?: SCD's
--- NOTE | 2016-07-15 17:04 | DIAGNOSTIC IMAGING REPORT ---
BILIARY ULTRASOUND CLINICAL HISTORY: Right abdominal/shoulder pain. COMPARISON STUDY: 03/13/2008 FINDINGS: The pancreas appears normal as visualized. The gallbladder surgically absent. There is no ductal dilatation. There is no right-sided hydronephrosis. The common bile duct measures 4 mm. No focal hepatic masses are visualized. IMPRESSION: Surgically absent gallbladder. Otherwise normal biliary ultrasound. Electronically signed by: [place] Enrique M.D. 07/15/2016 5:03 PM Dictated Date/Time: 07/15/2016 5:02 PM
[2016-07-15 18:32] LABS: FERRITIN 35.8 ng/ml (8.0-388.0)
--- NOTE | 2016-07-15 19:42 | Discharge Summary ---
Discharge Summary Admission Date: Jul 14, 2016 at 21:58 Discharge Date: Jul 15, 2016 Immunizations: Have You Had Influenza Vaccine: No Influenza Vaccine Date: Apr 03, 2008 History of Tetanus Vaccine?: Yes Tetanus Immunization Date: Oct 03, 2007 History of Pneumococcal: No History of Hepatitis B Vaccine: No Procedures: [facility] normal: Procedure Note Procedure Date Jul 15, 2016. Pre-Procedure Diagnosis Acute Coronary Syndrome (Worsening dyspnea on exertion which was felt to represent a possible anginal equivalent symptom.), Cardiothoracic Symptom ( Severe , progressively worsening dyspnea on exertion.) AUC Score 7 Post-Procedure Diagnosis Normal Coronary Arteries, Normal LV Systolic Function, Normal Intracardiac Pressures Procedure(s) Performed Coronary Angiography, Left Heart Cath, Right Heart Cath Research Food Technologist Dr. Mosquera People Greeter(s) KRISSY Orellana Estimated Blood Loss 25 ml Medication(s) Fentanyl, Heparin, Nicardipine (Intra-arterial), Versed, Lidocaine 1% Summary of Findings Clinical indications: The patient has been referred by Dr. Julian Quinn for right and left heart catheterization and coronary angiography. Over the past few months she has had progressively worsening dyspnea on exertion. This is limiting her performance of even normal activities. A recent stress echocardiogram revealed normal LV systolic function. Normal echo response to stress. The patient presented to [facility] on the evening of July 14 complaining of severe dyspnea on exertion and at rest. She also complained of chest pressure and diaphoresis accompanying the dyspnea. She was admitted for observation. Cardiac enzymes were negative for myocardial injury. Cardiac catheterization was indicated to assess intracardiac pressures and for the presence of any significant underlying coronary artery disease. Was felt that her symptoms could be anginal equivalent symptoms. Catheterization site: 6 Moldovan slender glide sheath right radial artery. 7 Moldovan sheath right femoral vein. Catheters: 7 Moldovan latex-free Sulligent-Bambi catheter for right heart catheterization (the patient has a latex allergy). Five Moldovan brachial 3.5 and pigtail catheters for coronary angiography, left heart catheterization, left ventricular angiography. Left heart catheterization and LV angiography were performed using the pigtail catheter. Hemostasis: Manual pressure right femoral venous site. Terumo TR band right radial artery site. Complications: None. Findings: The pressures in millimeter Hg : Rest aortic 107/63/84; LV 106/7; final aortic 109/58/82; RA 10/8/7; RV 30/7; pulmonary artery 30/13/21; pulmonary wedge . The cardiac output by the thermodilution method was 6.1 liters/minute. Cardiac index was 3.4 liters/minute per meter squared. The Brittani cardiac output was 6.6 liters/minute. Cardiac index by Brittani method was 3.6 liters/minute per meter squared. The pulmonary vascular resistance using the thermodilution cardiac output was 2.1 Calix units. The systemic vascular resistance was 12.7 Calix units. Oxygen saturations: AO 93 percent; PA 76 percent; RA 76 percent. Fluoroscopy did not reveal any coronary calcifications. The coronary circulation was right dominant. No obstructive coronary artery disease noted. Large caliber left main giving rise to medium caliber left anterior descending and left circumflex coronary arteries. The mid LAD was of small caliber. The distal LAD was of very small caliber. Very small caliber first diagonal and small caliber second diagonal. The left circumflex gave rise to very small caliber 1st and 2nd marginal arteries. It then gave rise to a long small to medium caliber 3rd marginal artery. The right coronary artery was a medium caliber vessel giving rise to small caliber posterior descending and posterolateral arteries. Left ventricular angiography performed from the 30 degree right anterior oblique projection revealed all LV segments to contract normally. The calculated left ventricular ejection fraction was 68 percent. No mitral regurgitation noted. Plan: The results were discussed with Dr. Quinn and with the patient's hospitalist Dr.Ryan Acevedo. Based on the catheterization results there is no evident cardiac etiology for her symptoms. A noncardiac etiology will now be considered. She will have continue medical follow-up with her primary care provider. Hemodynamics Rest Ao: 107/63/84 Final Ao: 109/58/82 LV: 106/7 RA: RV: 30/7 PA: PW: Recommendations Medical therapy and/or Counseling Specimens None Radiation Exposure (mGy) 750 Contrast (mls) 110 ml Visipaque Fluids (cc crystalloids) 159 Drains none Anesthesia Intravenous Versed and fentanyl. Lidocaine 1 % for local anesthesia. Procedural Complication(s) None Disposition PCU ACC Data Cardiac Status Clinical evaluation leading to the procedure CAD Presntation: Unstable angina Anginal Classification: CCS IV Heart Failure: No Cardiogenic Shock w/in 24Hrs: No Cardiac Arrest w/in 24Hrs: No Imaging studies past 6 months: Yes Standard Exercise Stress Test: No Stress Echocardiogram: Yes - Negative Stress Testing w/SPECT MPI: No Cardiac CTA: No Coronary Anatomy Dominant: Right Left Main (% Stenosis): Normal LAD (% Stenosis): Normal D1 (% Stenosis): Normal D2 (% Stenosis): Normal Circumflex (% Stenosis): Normal OM1 (% Stenosis): Normal OM2 (% Stenosis): Normal OM3 (% Stenosis): Normal RCA (% Stenosis): Normal R PDA (% Stenosis): Normal R PL1 (% Stenosis): Normal R PL2 (% Stenosis): Normal Left Ventricular Angiography EF (%): 68 Wall Motion: Inferior (Normal), Apical (Normal), Anterior (Normal) Mitral Regurgitation: None Diagnostic Physician's Name: Keanu Mosquera M.D. Status: Elective Closure Device Percutaneous Entry Location: Right radial artery for arterial access. Right femoral vein for venous access. Closure Device: Radial Band Recommendations: Medical therapy and/or Counseling <Electronically signed by Keanu Mosquera M.D.> Signed: 07/15/16 1411 Last 24 Hours Test 07/15/16 06:00 07/15/16 06:10 07/15/16 12:41 07/15/16 12:49 Creatine Kinase MB Ratio Creatine Kinase MB 1.1 ng/ml Troponin I < 0.015 ng/ml Bedside Blood Gas pH (LAB) 7.37 7.31 Bedside Blood Gas pCO2 (LAB) 43 mmHg 46 mmHg Bedside Blood Gas pO2 (LAB) 70 mmHg 40 mmHg Bedside Blood Gas HCO3 (LAB) 25 meq/L 23 meq/L Bedside Blood Gas Total CO2 26 mEq/l 25 mEq/l Bedside Blood Gas Base Excess (LAB) 0.0 meq/L -3.0 meq/L Bedside Blood Gas O2 Saturation 93.0 % 70.0 % Test 07/15/16 12:56 07/15/16 12:59 07/15/16 14:00 07/15/16 14:15 Bedside Blood Gas pH (LAB) 7.31 Bedside Blood Gas pCO2 (LAB) 46 mmHg Bedside Blood Gas pO2 (LAB) 45 mmHg Bedside Blood Gas HCO3 (LAB) 23 meq/L Bedside Blood Gas Total CO2 24 mEq/l Bedside Blood Gas Base Excess (LAB) -3.0 meq/L Bedside Blood Gas O2 Saturation 76.0 % Kaolin Activated Coagulation Time 193 SECONDS Creatine Kinase MB Ratio Creatine Kinase MB 0.7 ng/ml Troponin I < 0.015 ng/ml Test 07/15/16 17:49 Iron Level 95 mcg/dl Total Iron Binding Capacity 322 mcg/dl Transferrin 268 mg/dl Transferrin % Saturation 25 % Ferritin 35.8 ng/ml Vitamin B12 Level 955 pg/mL 25-Hydroxy Vitamin D Total 37.2 ng/ml BILIARY ULTRASOUND CLINICAL HISTORY: Right abdominal/shoulder pain. COMPARISON STUDY: 03/13/2008 FINDINGS: The pancreas appears normal as visualized. The gallbladder surgically absent. There is no ductal dilatation. There is no right-sided hydronephrosis. The common bile duct measures 4 mm. No focal hepatic masses are visualized. IMPRESSION: Surgically absent gallbladder. Otherwise normal biliary ultrasound. Electronically signed by: [place] Enrique M.D. 07/15/2016 5:03 PM Dictated Date/Time: 07/15/2016 5:02 PM [~ rep ct add3]] CT SCAN OF THE CERVICAL SPINE CLINICAL HISTORY: Hand numbness. Cervical stenosis. Dizziness. COMPARISON STUDY: Radiographs of the cervical spine dated 06/21/2008. TECHNIQUE: CT scan of the cervical spine is performed from the skull base to the upper thoracic spine. Images are reviewed in the axial, sagittal, and coronal planes. IV contrast was not administered for this examination. CT DOSE: 221.38 mGy.cm FINDINGS: Skeletal structures: The skeletal structures are osteopenic. There is no evidence of fracture or subluxation involving the cervical spine. Vertebral body height and alignment are maintained. There is straightening of the cervical lordosis. The odontoid process and lateral masses are intact. The atlantoaxial articulation is preserved noting productive degenerative change. The spinous processes appear intact. Small anterior osteophytes are noted in the lower cervical region. No significant facet arthropathy or neural foraminal stenosis is identified. Intervertebral discs: The disc spaces are well maintained. Central canal: Widely patent. Soft tissues: The prevertebral and paraspinous soft tissues are within normal limits. Calvarium: The visualized calvarium at the skull base appears intact. Brain parenchyma: Partially visualized brain parenchyma the skull base is within normal limits. Sinuses and mastoids: There is trace fluid within the right sphenoid sinus. The mastoid air cells are well pneumatized. Lung apices: Clear as visualized. IMPRESSION: There is no evidence of fracture or subluxation involving the cervical spine. Electronically signed by: Willis Randle M.D. 07/15/2016 7:16 AM Dictated Date/Time: 07/15/2016 7:13 AM ULTRASOUND LEFT LOWER EXTREMITY VENOUS CLINICAL HISTORY: Left leg pain. COMPARISON STUDY: No priors. TECHNIQUE: Real-time, grayscale, and color Doppler sonography of the deep veins of the left lower extremity was performed from the inguinal crease to the calf. Compression and augmentation were utilized. FINDINGS: There is no sonographic evidence of deep venous thrombosis identified in the left lower extremity. The common femoral, superficial femoral, and popliteal veins are patent and normally compressible. The greater saphenous vein and the profunda femoris vein at the junction with the common femoral vein are clear. The visualized calf veins are patent. There is a small complex hypoechoic ovoid nodular structure identified in the medial left calf indicated site of interest. This measures 2.9 x 0.8 x 2.0 cm, and internal flow is shown on color imaging. This may be intramuscular in location. IMPRESSION: 1. There is no sonographic evidence of deep venous thrombosis identified in the left lower extremity. 2. There is a 2.9 cm heterogeneously hypoechoic nodular structure in the medial left calf. There is minimal internal flow suggested on color imaging. A soft tissue lesion such as a nerve sheath tumor is not excluded. Clinical correlation will be required. This lesion is reportedly palpable, and if clinically warranted a nonemergent contrast-enhanced MRI could be considered for further interrogation. Electronically signed by: Willis Randle M.D. 07/14/2016 4:15 PM Dictated Date/Time: 07/14/2016 4:10 PM CHEST ONE VIEW PORTABLE CLINICAL HISTORY: Chest pain. COMPARISON STUDY: Chest radiograph March 10, 2013. FINDINGS: Lung volumes are normal. Lungs are clear. There is no pneumothorax or pleural effusion. Cardiac size is normal. Mediastinal contours are normal. There is no evidence of pulmonary edema. IMPRESSION: No acute cardiopulmonary findings. Electronically signed by: Oscar Campos M.D. 07/14/2016 3:00 PM Dictated Date/Time: 07/14/2016 2:59 PM Consultations: cardiology Medication Reconciliation Continued Medications: Cholecalciferol (Vitamin D3) 1,000 Unit Tab 2000 INTER.UNIT PO DAILY Levothyroxine Sodium (Synthroid) 125 Mcg Tab 125 MCG PO DAILY, TAB Lorazepam (Lorazepam) 0.5 Mg Tab 0.5 MG PO Q8H PRN, #30 Magnesium Oxide (Mag-Ox) 400 Mg Tab 400 MG PO Q2D, TAB Magnesium Oxide (Mag-Ox) 400 Mg Tab 800 MG PO Q2D, TAB Meloxicam (Mobic) 15 Mg Tab 15 MG PO DAILY, TAB Multiple Vitamin (Multivitamin) 1 Tab Tab 1 TAB PO DAILY, TAB Pantoprazole (Protonix) 40 Mg Tab 40 MG PO BID, TAB Paroxetine (Paxil) 20 Mg Tab 20 MG PO BID, TAB Discharge Exam Physical Exam: General Appearance: no apparent distress Eyes: EOMI ENT: hearing grossly normal Neck: trachea midline Respiratory/Chest: no respiratory distress, no accessory muscle use Extremities: normal inspection Neurologic/Psychiatric: therapist radiation II-XII nml as tested, alert, normal mood/affect Skin: normal color, warm/dry Hospital Course fatigue/diaphoresis/MATHEWS -seems more exertional than anything - ?metabolic/infectious (occult tick borne ) vs vasoactive (follow BP) vs far less likely pulmonary (follow pulse ox w exertion, consider CT chest but no clear pulmonary focus at this time) vs "odd hormonal" (consider empiric retrial of HRT but also separately was told that her estrogen levels "were high" which would warrant separate w/u and follow up) vs deficiencies (sent B12, iron, B1, vitamin D); notes recent TSH was normal in this w/u see below for instructions sent w pt - will need close and ongoing PCP f/u: as we discussed - with your heart cath being normal, we'll have to take a stepwise diagnostic approach to figuring this out a) blood pressure fluctuation or low oxygen numbers --if you were on blood pressure medication, your symptoms would sound like someone who's been "overtreated" - since you're not we'll need to screen for variability and drops in blood pressure -- so follow numbers incessantly over the next week - especially around the times you have symptoms (check during, and after - and frequently) --similarly but less likely - while this doesn't really sound like a pulmonary issue, if you were to have something going on pulmonary-south, it would likely manifest as low oxygen numbers with exertion - so as you're checking blood pressures, while oxygen numbers dropping are less likely with you, it makes sense to go ahead and check a pulse ox frequently as well ------follow these numbers closely for the next week - as often as you're having symptoms, if it isn't obviously related to blood pressure or oxygen numbers by then, it will be something that is for all intents and purposes "eliminated" b) tick borne illness - while your lyme titers have been negative, it's certainly possible that this could be related to something tick borne - especially because this is such an endemic area, and because you did feel a little better when you were on the doxycycline. if the blood pressure/oxygen workup yields nothing, it would be worth a re-trial of doxycycline for a month or so - this is well off the beaten path conventionally, to be honest, but since you did feel a little better on the doxy, it is well worth considering c) hormonal --knowing that things have felt weird since you stopped the hormone replacement therapy, and also knowing that you were told that your estrogen levels are high - this really represents two different possibilities. one would be if you're still in an odd way menopausal - which would best be determined by a therapeutic trial of hormone replacement. as we discussed, it does come with some risks - clots, heart attacks, and strokes-- but with your coronary arteries being clear, the heart attack and stroke risk is less, so it is worth considering a trial as well - especially with how miserable you've been. you had noted that your estrogen levels were reported as "high" -- this will also warrant further thought and discussion as a possible culprit -- continue to discuss w dr bearden d) vitamin / nutrient - while unlikely - if you were profoundly deficient in something like B12, or iron - it could potentially cause symptoms like this just based on having to "over-exert to keep up with normal tasks" -- so we sent a number of labs before discharge that will be back to review with roseanne and dr bearden they may have other hypotheses that appear to fit better with your symptoms than the ones we've outlined above --- if this is the case, then those hypotheses can "cut in line" -- but the strategy of looking at a possibility, fleshing it out, and then moving on to the next one until the problem is defined , should do well to get to the bottom of this. i'd want you being seen weekly for the foreseeable future to keep the pace on this kind of diagnostic "process of elimination" moving Total Time Spent: Greater than 30 minutes This includes examination of the patient, discharge planning, medication reconciliation, and communication with other providers. Discharge Instructions Please refer to the electronic Patient Visit Report (Discharge Instructions) for additional information. Follow-Up PCP within a week then frequently w serial exam/elimination of possibilities Additional Copies To Sana Underwood; Rich Bearden M.D.
[2016-07-16] MEDS ORDERED: MAGNESIUM OXIDE 400 MG TAB PO SCH (09:00)
[2016-07-17 14:27] LABS: EBV EARLY ANTIGEN AB <0.91 INDEX; EHRLICHIA CHAFF IGG AB <1:64 (<1:64); EHRLICHIA CHAFF IGM AB <1:20 (<1:20); EPSTEIN BARR VIR CAPSID IGG 4.75 INDEX
== END 2016-07-15 18:45 | disposition home or self-care (01) ==
LOC: ENRESERVTM → ENRESERVDT → C.EDB 12:37 → C.MED 21:58 → C.2E 07-15 12:50
PROVIDERS: ADMIT Hospitalist; ATTEND Family Medicine
DX: I25.10 Atherosclerotic heart disease of native coronary artery without angina pectoris (principal); R55 Syncope and collapse; G47.33 Obstructive sleep apnea (adult) (pediatric); K21.9 Gastro-esophageal reflux disease without esophagitis; E03.9 Hypothyroidism, unspecified; M79.7 Fibromyalgia; F32.9 Major depressive disorder, single episode, unspecified; N30.10 Interstitial cystitis (chronic) without hematuria; Z88.5 Allergy status to narcotic agent; Z91.040 Latex allergy status

== ENCOUNTER 2022-03-17 05:10 | Observation (INO) ==
--- NOTE | 2022-03-05 08:21 | PAT Medication Instructions ---
Medication Instructions Date of Service March 05, 2022 Home Medications lorazepam 0.5 mg tablet 0.5 mg PO UD PRN Anxiety magnesium oxide 500 mg capsule 500 mg PO QAM meloxicam 15 mg tablet 15 mg PO QAM pantoprazole 40 mg tablet,delayed release (Protonix) 40 mg PO BID cholecalciferol (vitamin D3) 125 mcg (5,000 unit) tablet (Vitamin D3) 125 mcg PO QAM clotrimazole-betamethasone 1 %-0.05 % topical cream 1 applic topical BID PRN Vaginal Dryness estradiol 1 mg tablet 1 mg PO QAM estradiol 10 mcg vaginal tablet (Vagifem) 10 mcg vaginal ONCE PRN Vaginal Dryness hydroxyzine HCl 25 mg tablet 25 mg PO HS levothyroxine 75 mcg tablet 75 mcg PO QAM paroxetine HCl 10 mg tablet 10 mg PO QAM paroxetine HCl 40 mg tablet 40 mg PO HS ASK your surgeon for instructions meloxicam 15 mg tablet 15 mg PO QAM estradiol 1 mg tablet 1 mg PO QAM STOP taking 24 hours before surgery clotrimazole-betamethasone 1 %-0.05 % topical cream 1 applic topical BID PRN Vaginal Dryness estradiol 10 mcg vaginal tablet (Vagifem) 10 mcg vaginal ONCE PRN Vaginal Dryness DO NOT take the morning of surgery magnesium oxide 500 mg capsule 500 mg PO QAM cholecalciferol (vitamin D3) 125 mcg (5,000 unit) tablet (Vitamin D3) 125 mcg PO QAM Take morning of surgery With a small sip of water, OTHERWISE NOTHING TO EAT OR DRINK AFTER MIDNIGHT: lorazepam 0.5 mg tablet 0.5 mg PO UD PRN Anxiety (if needed) pantoprazole 40 mg tablet,delayed release (Protonix) 40 mg PO BID levothyroxine 75 mcg tablet 75 mcg PO QAM paroxetine HCl 10 mg tablet 10 mg PO QAM Take evening before surgery lorazepam 0.5 mg tablet 0.5 mg PO UD PRN Anxiety (if needed) pantoprazole 40 mg tablet,delayed release (Protonix) 40 mg PO BID hydroxyzine HCl 25 mg tablet 25 mg PO HS paroxetine HCl 40 mg tablet 40 mg PO HS Other Notes If you have any questions please call us at [phone] or [phone] or [phone] or [phone]
--- NOTE | 2022-03-06 14:34 | Anesthesiology Consultation ---
Date of Service March 06, 2022 Assessment & Plan (1) Encounter for pre-operative examination: - Patient acceptable risk for surgery pending surgeon-ordered PCP preop evaluation ([facility]/Dr. Bearden, scheduled 03/11). - COVID screening: Per assessment on 03/04: No known COVID-19 positive contacts or current COVID-19 related symptoms. Travel screen negative. Patient vaccinated. At surgeon discretion if preop Covid testing being done. - Outpatient joint assessment: Pt currently scheduled for inpatient pathway. If surgeon requests review for outpatient joint pathway, patient is not recommended candidate for outpatient joint program from anesthesia standpoint. Chart Review Chart Review: Patient seen in Pre Admission Testing Teaching & Discussion Pre-Anesthesia Teaching/Discussion Notes: Instructed NPO after midnight before surgery,except medications with 15 cc of water. Medication instructions provided according to the PAT guidelines. History Surgery Operation Date: 03/17/22 10:40 Proposed Procedures p Left Total Knee Arthroplasty - Maximo Ramirez MD Height/Weight Height: 5 ft 2 in Weight: 77.7 kg Allergies Allergy/AdvReac Type Severity Reaction Status Date / Time latex Allergy Unknown Swelling, Verified 03/05/22 08:51 rash, itch verapamil Allergy Unknown Rash, itch Verified 03/05/22 08:51 codeine AdvReac Mild N/V, felt Verified 03/05/22 08:51 "out of it" morphine AdvReac Mild N/V Verified 03/04/22 14:02 pentosan polysulfate sodium AdvReac Mild Vertigo Verified 03/05/22 08:51 amitriptyline AdvReac Unknown Fatigue, Verified 03/05/22 08:51 "not feeling well" terbinafine AdvReac Unknown "Really Verified 03/05/22 08:51 sick" Medications Home Medications Medication Instructions Recorded Confirmed Last Taken lorazepam 0.5 mg tablet 0.5 mg PO UD PRN Anxiety 09/02/20 03/04/22 Unknown magnesium oxide 500 mg capsule 500 mg PO QAM 09/02/20 03/04/22 Unknown meloxicam 15 mg tablet 15 mg PO QAM 09/02/20 03/04/22 Unknown pantoprazole 40 mg tablet,delayed 40 mg PO BID 01/17/21 03/04/22 Unknown release (Protonix) cholecalciferol (vitamin D3) 125 125 mcg PO QAM 03/04/22 03/04/22 Unknown mcg (5,000 unit) tablet (Vitamin D3) clotrimazole-betamethasone 1 1 applic topical BID PRN Vaginal 03/04/22 03/04/22 Unknown %-0.05 % topical cream Dryness estradiol 1 mg tablet 1 mg PO QAM 03/04/22 03/04/22 Unknown estradiol 10 mcg vaginal tablet 10 mcg vaginal ONCE PRN Vaginal 03/04/22 03/04/22 Unknown (Vagifem) Dryness hydroxyzine HCl 25 mg tablet 25 mg PO HS 03/04/22 03/04/22 Unknown levothyroxine 75 mcg tablet 75 mcg PO QAM 03/04/22 03/04/22 Unknown paroxetine HCl 10 mg tablet 10 mg PO QAM 03/04/22 03/04/22 Unknown paroxetine HCl 40 mg tablet 40 mg PO HS 03/04/22 03/04/22 Unknown Past Medical History Medical History Arthritis knee, shoulders, back Atypical chest pain Hx of remote atypical chest pain (2015) s/p EKG/stress test/cardiac cath - normal coronary arteries per cath, "concluded it was from a panic attack and anxiety" Chronic interstitial cystitis without hematuria Depression History of renal calculi Passed without intervention Hx of migraines No issues x years, reason for magnesium per pt Hypothyroidism Nocturia Sleep apnea CPAP (rare use) Vulvar burning Improved Exercise / Class Metabolic Activity III < 4 Walking/Shop/Light housework (one FS (no CP, + occasional SOB)) Past Family History Family History Father Prostate cancer Other Diabetes Denies family history of Ovarian cancer Breast cancer Colorectal cancer Uterine cancer Past Surgical History Surgical History H/O hysterectomy with oophorectomy H/O oral surgery History of cardiac cath 2016 > "normal coronary arteries History of esophagogastroduodenoscopy (EGD) History of total right knee replacement Hx of appendectomy Hx of cholecystectomy Hx of colonoscopy Hx of laparoscopy Hx of tubal ligation Nausea after anesthesia Past Anesthesia History No Hx of Anesthesia Complications (except post-op nausea/vertigo) and No Family Hx of Anesthesia Complications History of PONV History of PONV (except post-op nausea/vertigo) and Hx of Motion Sickness (Hx vertigo) Social History Smoking Status: Never smoker Do You Dip or Chew Tobacco: No Hx Alcohol Use: Yes Alcohol type: wine and hard liquor alcohol intake frequency: holidays/special occasions only Hx Substance Use: No substance use type: does not use Physical Exam Vital Signs VITALS BP 127/81 P 97 TEMP 98.2 SP02 95%RA RESP 18 PHYSICAL Full cervical extension range of motion. Full TMJ range of motion. TMD 2 finger breaths (small chin) Mallampati Score 2 Dentition: missing sides/molars, + crowns Lungs: clear throughout to auscultation Cardiac: regular rate and rhythm, no murmurs noted Spine: normal Carotid arteries: negative bruit Extremities: no edema Lab Results Anesthesia Preop Results Results Anesthesia Widget: WBC 6.49 K/ul (4.8-10.8) 03/06/22 Hgb 14.6 g/dl (12.0-16.0) 03/06/22 Hct 43.3 % (34.1-44.9) 03/06/22 Plt 301 K/uL (130-400) 03/06/22 Na 136 mmol/L (136-145) 03/06/22 K 4.4 mmol/L (3.5-5.1) 03/06/22 Cl 103 mmol/L (98-107) 03/06/22 CO2 27 mmol/L (21-32) 03/06/22 BUN 18 mg/dl (6-23) 03/06/22 Creat 1.04 mg/dl (0.6-1.2) 03/06/22 Glucose Level 85 mg/dl (70-99(Fasting)) 03/06/22 PT 9.9 Seconds (9.0-12.0) 03/06/22 PTT 26.1 Seconds (21.0-31.0) 03/06/22 INR 0.9 (0.9-1.1) 03/06/22 HA1c 5.5 % (4.5-5.6) 03/06/22 Blood Type A Positive 03/06/22 Antibody Screen NEGATIVE 03/06/22 Testing Electrocardiogram Date: 03/06/22 NSR at 81bpm. LAD. No significant change compared to 07/14/16 per steam fitter supervisor review. Chest X-Ray Date: 03/06/22 Findings: + NAD Stress Test Date: 05/21/16 Type: exercise Negative exercise ECG for ischemia. Negative stress echo for ischemia at 103% MPHR. 5.7 METS. COVID-19 Risk Screen Screening Information COVID-19 Screen Date: 03/06/22 Exposure 21 Days Family/Household +COVID Last 21 Days: No Exposure 10 Days Any COVID Exposure Last 10 Days: No Symptoms Last 10 Days Experienced COVID Sx Last 10 Days: No + COVID 0-90 Days COVID + in Last 0-90 Days: No
[2022-03-17] MEDS ORDERED: TRANEXAMIC ACID 1,000 MG **IV Intra-op IV SCH (06:00)
[2022-03-17] MEDS ORDERED: ROPIVACAINE 0.5% HCL/PF 150 MG, BUPIVACAINE 0.75% MPF 20 ML, EPINEPHrine 0.15 MG, Ketor... INFIL SCH (06:00)
[2022-03-17] MEDS ORDERED: METOCLOPRAMIDE HCL 10 MG TABLET PO SCH (06:00)
[2022-03-17] MEDS ORDERED: ceFAZolin 1000MG 1,000 MG/7.5 ML SYR IV SCH (06:00)
[2022-03-17] MEDS ORDERED: traMADol HCL 50 MG TABLET PO SCH (06:00)
[2022-03-17] MEDS ORDERED: oxyCODONE HCL 10 MG TABCR (OxyCONTIN) PO SCH (06:00)
[2022-03-17] MEDS ORDERED: TRANEXAMIC ACID 1,000 MG **IV Pre-op IV SCH (06:00)
[2022-03-17] MEDS ORDERED: cloNIDine HCL 0.1 MG/24 HR TRANSDERM SYS TD SCH (06:00)
[2022-03-17] MEDS ORDERED: FAMOTIDINE 20 MG TAB PO SCH (06:00)
[2022-03-17] MEDS ORDERED: CeleBREX 200 MG CAP PO SCH (06:00)
[2022-03-17] MEDS ORDERED: LR 60ML/HR IV SCH (06:00)
[2022-03-17] MEDS ORDERED: GABAPENTIN 300 MG CAP PO SCH (06:00)
[2022-03-17] MEDS ORDERED: LR 500ML BOLUS, THEN 15ML/HR IV SCH (06:00)
[2022-03-17] MEDS ORDERED: dexAMETHasone 4 MG TAB PO SCH (06:00)
[2022-03-17] MEDS ORDERED: ACETAMINOPHEN 500 MG TAB PO SCH (06:00)
[2022-03-17] MEDS ORDERED: BUPIVACAINE 0.5 % 5 MG/1 ML PF 10ML VIAL ONE (06:18)
[2022-03-17] MEDS ORDERED: ROPIVACAINE 0.5% 5 MG/ML 30 ML VIAL ONE (06:18)
[2022-03-17] MEDS ORDERED: LIDOCAINE 2% MPF LOCAL 5 ML VIAL INFIL ONE (06:28)
[2022-03-17] MEDS ORDERED: ONDANSETRON INJ 2 MG/ML 2 ML VIAL ONE (06:28)
[2022-03-17] MEDS ORDERED: GLYCOPYRROLATE 0.2 MG/ML VIAL ONE (06:28)
[2022-03-17] MEDS ORDERED: KETOROLAC 30 MG/ML VIAL ONE (06:28)
[2022-03-17] MEDS ORDERED: KETAMINE 50 MG/5 ML SYRINGE ONE (06:28)
[2022-03-17] MEDS ORDERED: MIDAZOLAM HCL 1 MG/ML 2ML VIAL ONE (06:28)
[2022-03-17] MEDS ORDERED: PROPOFOL IV EMULSION 10 MG/ML 20 ML VIAL IV ONE (06:28)
--- NOTE | 2022-03-17 06:36 | History & Physical Bridge Note ---
Date of Service March 17, 2022 History & Physical Bridge Note I have examined the patient, reviewed the History & Physical and in the interval since the performance of the History & Physical I have noted the following changes of clinical significance: no changes noted
[2022-03-17] MEDS ORDERED: ORTHO JOINT ANESTHETIC ONE (06:37)
[2022-03-17] MEDS ORDERED: VANCOMYCIN HCL 1000MG/20ML VIAL ONE (06:38)
[2022-03-17] MEDS ORDERED: ceFAZolin 330 MG/ML 1 GM VIAL ONE (07:13)
[2022-03-17] MEDS ORDERED: SODIUM CHLORIDE 0.9% INJ 10 ML VIAL ONE (07:13)
[2022-03-17] MEDS ORDERED: ePHEDrine sulfate 50 MG/ML AMP IV PRN (07:21)
[2022-03-17] MEDS ORDERED: ONDANSETRON INJ 2 MG/ML 2 ML VIAL IV PRN ×2 (07:21→11:08)
[2022-03-17] MEDS ORDERED: PROMETHAZINE HCL 12.5 MG in SODIUM CHLORIDE 0.9% 50 ML IV PRN (07:21)
[2022-03-17] MEDS ORDERED: HYDROmorphone INJ 2 MG/ML SYR/VIAL IV PRN (07:21)
[2022-03-17] MEDS ORDERED: fentaNYL citrate 100 MCG/2 ML VIAL IV PRN (07:21)
[2022-03-17] MEDS ORDERED: ATROPINE SULFATE 0.1 MG/ML 10ML SYR IV PRN (07:21)
--- NOTE | 2022-03-17 09:41 | Operative Report ---
Post Operative Report Pre & Post Diagnosis Operation Date: 03/17/22 07:00 Pre-Op Diagnosis: Osteoarthritis Knee Left Post-Op Diagnosis: Osteoarthritis Knee Left I identified the patient and participated in the time-out.: Yes Procedure Operation Date: 03/17/22 07:00 Actual Procedures p Left Total Knee Arthroplasty(Left) - Maximo Ramirez MD Surgeon Maximo Ramirez M.D. Toolmaker Helper Radha Morin PA-C; no fellow or resident available Estimated Blood Loss 10 Findings Consistent with Post-Op Diagnosis Specimens Bone and soft tissue Anesthesia Type MAC Spinal Regional Description of Procedure Patient was taken to the operating room, placed under IV sedation, spinal anesthesia with peripheral nerve block. Time out performed, prepped and draped in routine sterile fashion. I was present during the entire case, please see Dr. Ramirez's operative report for further detail. Patient was awakened and taken to the recovery room in stable condition. I attest to the content of the Intraoperative Record and any orders documented therein. Any exceptions are noted below.
--- NOTE | 2022-03-17 09:48 | Operative Report ---
Post Operative Report Pre & Post Diagnosis Operation Date: 03/17/22 07:00 Pre-Op Diagnosis: Osteoarthritis Knee Left Post-Op Diagnosis: Osteoarthritis Knee Left I identified the patient and participated in the time-out.: Yes Procedure Operation Date: 03/17/22 07:00 Actual Procedures p Left Total Knee Arthroplasty(Left) - Maximo Ramirez MD Surgeon Maximo Ramirez MD Printing Pressman Radha Morin PA-C; no fellow or resident available Estimated Blood Loss 10 Findings Consistent with Post-Op Diagnosis Specimens Resected bone and soft tissue Anesthesia Type MAC Spinal Regional Complications none Disposition Accompanied Patient To Recovery: No Disposition: Recovery Room Indications Missy is 66. She has left knee pain refractory to nonsurgical methods of management. She has had a previous right knee replacement. She has elected to undergo operative intervention. Her pain interferes with her activities of daily living. Description of Procedure Informed consent. Patient identified. She identified the operative site as the left knee. I marked with my initials. Preop surgical timeout performed. Preop dose of IV antibiotics given. She was taken to the operating room positioned supine on the OR table. Anesthetic administered. Tourniquet on the left thigh. Bump under the left hip and left calf. The leg was prepped and draped in usual sterile fashion. DVT prophylaxis with mechanical devices intraoperatively. Postop early mobility mechanical devices and Lovenox. Exam under anesthesia revealed full extension and flexion to about 135 degrees slight varus alignment intact cruciates and collaterals. Limb exsanguinated with the Esmarch. Tourniquet inflated 275 mmHg and later to 300. Midline longitudinal incision was made about 20 cm in length. Medial parapatellar arthrotomy. Soft tissue on the anterior aspect of the distal femur was resected. Synovial reflection and lateral gutter released. Retropatellar fat pad excised. Medial release performed. The knee was able to be flexed with the patella everted. The patella had reasonably good cartilage but had marginal osteophytes. Grade 1 and 2 changes. The cruciate ligaments were intact and were resected. The lateral compartment looked normal. The medial compartment showed an area of 1 x 2 cm anterior and medial with grade 4 changes. The entire weightbearing area of the femur 2-1/2 x 4 cm had grade 4 or 3 change. Marginal osteophytes were noted and debrided. Cruciate ligamnts resected. A pilot plant technician hole was drilled into the proximal tibia just in front of the lateral tibial spine and intramedullary alignment cristian was inserted. It was aligned to the tibial tubercle and pinned into place to take 10 mm off of the lateral side corresponding to 2 mm off the medial side. That cut was made and sized to a 2. A pilot plant technician hole was drilled into the distal femur followed by insertion of the distal femoral cutting block set at 5 degrees valgus 12 mm thick cut. This was cut and the extension gap was a symmetric 10. The epicondylar axis was marked out and the distal femoral sizing block was applied and sized to a 2. Box cutting guide applied lateralized and the box cut was made. The femoral trial was applied and the tibia was then prepared with the keel and punch. Trialing was then performed with a size 10 spacer showing full extension trace LCL laxity in mid position. Stable in full extension and stable at 90. The patella was measured to be 22 mm in thickness. The 32 patella was selected. The guide was set to preserve 15 mm of bone. The cut was made. The patella was aligned to the trochlea with the knee slightly flexed and the patella was distal lysed and medialized. The lug holes were drilled and patellar tracking was fine. The trial components were then removed. The canals were plugged and copious pulsatile lavage was performed. I did inspect the back of the knee and there was no significant osteophytes noted. The flexion gap was also noted to be a symmetric 10. The components were inserted and cemented in place femur tibia patella and held in full extension with a trial spacer until the cement hardened. 2 bags of Simplex P cement were mixed using vacuum technique and then applied while in a doughy workable state. Smears were placed on the posterior condyles. After the cement hardening the laxity was again assessed and found to be acceptable and the final 10 mm polyethylene insert was applied. Ortho joint mix had been injected into the back of the knee as well as the remainder of the knee. Copious pulsatile lavage was performed throughout the procedure and also while the cement was hardening. Soft tissues were kept moist. The back the knee was inspected for cement and found none. Meticulous hemostasis was per formed after the tourniquet had been let down. Patella tracking was fine with no hands technique. The final component was inserted full extension. With the extensor mechanism close gravity assisted flexion was 125 degrees. Patellar thickness was 22 mm. Patellar tracking was fine with no hands technique. The extensor mechanism was closed with interrupted #2 FiberWire above the equator of the patella. Running and interrupted #1 Vicryl below. The skin was then closed in layers with 0 and 2-0 Vicryl followed by mauricio. The leg was cleaned wet and dry sponges and soft sterile dressing was applied Xeroform 4 x 4's ABD soft wrap Davin wrap and knee immobilizer. Patient awakened from anesthesia difficulty and taken to the recovery room in stable condition. There were no complications. Counts were correct. Blood loss is estimated to be 10 cc. TXA was given before and after surgery. The resected bone and soft tissue were sent for specimen. At the conclusion the operation spoke to patient's informed of my findings. Plan is to admit her to the hospital begin DVT prophylaxis and PT. Components inserted with a J[employer] PFC Sigma rotating platform knee a size 32 3 peg oval dome patella size 2 mobile-bearing keeled tibial tray and a size 2.5 left posterior stabilized femoral component with a size 2.5 x 10 mm thick polyethylene insert. I attest to the content of the Intraoperative Record and any orders documented therein. Any exceptions are noted below.
--- NOTE | 2022-03-17 10:56 | XRay Report ---
XR knee LT 1 or 2V routine CLINICAL HISTORY: Postoperative evaluation. COMPARISON: Left knee radiographs February 24, 2022. FINDINGS: Alignment of the total left knee arthroplasty is anatomic. There is no periprosthetic frac ture or unexpected radiopaque foreign body. There are skin mauricio. IMPRESSION: Expected findings following total left knee arthroplasty. ACT 112: Negative or not required by law. Electronically signed by: Oscar Campos M.D. 03/17/2022 10:55 AM
[2022-03-17] MEDS ORDERED: bisacodyL 10 MG SUPP PR PRN (11:08)
[2022-03-17] MEDS ORDERED: MAGNESIUM HYDROXIDE SUSP 30 ML UDC PO PRN (11:08)
[2022-03-17] MEDS ORDERED: HYDROmorphone INJ 1 MG/ML SYRINGE IV PRN (11:08)
[2022-03-17] MEDS ORDERED: traMADol HCL 50 MG TABLET PO PRN (11:08)
[2022-03-17] MEDS ORDERED: NALOXONE HCL 0.4 MG/1 ML VIAL/CARP IV PRN (11:08)
[2022-03-17] MEDS ORDERED: HYDROmorphone INJ 0.5 MG/0.5 ML SYR IV PRN (11:08)
[2022-03-17] MEDS ORDERED: diphenhydrAMINE 50 MG/ML VIAL IV PRN (11:08)
[2022-03-17] MEDS ORDERED: METOCLOPRAMIDE HCL INJ 5 MG/ML 2 ML VIAL IV PRN (11:08)
[2022-03-17] MEDS ORDERED: LORazepam 0.5 MG TAB PO PRN (11:08)
[2022-03-17] MEDS: CHECK CLONIDINE PATCH PLACEMENT SCH ×3 (11:12→16:22)
[2022-03-17] MEDS: SODIUM CHLORIDE 0.9% 1000ML 1,000 ML IV SCH (11:22)
--- NOTE | 2022-03-17 11:50 | Anesthesiology Progress Note ---
Date of Service March 17, 2022 Anesthesia Post Procedure Vital Signs Vital Signs: Temp Pulse Pulse Resp BP Pulse Ox O2 Del Method 03/17/22 11:36 109 H 16 132/79 97 Nasal Cannula 03/17/22 11:25 Nasal Cannula 03/17/22 10:55 36.7 C 114 H 16 130/85 94 Room Air 03/17/22 10:45 113 H 20 129/79 93 Room Air 03/17/22 10:35 111 H 12 130/79 93 Room Air 03/17/22 10:25 110 H 17 126/77 93 Room Air 03/17/22 10:15 113 H 20 129/84 96 Nasal Cannula 03/17/22 10:05 116 H 20 119/84 97 Nasal Cannula 03/17/22 09:55 118 H 16 131/80 96 Nasal Cannula 03/17/22 09:45 123 H 15 121/75 98 Nasal Cannula 03/17/22 09:39 36.9 C 120 H 10 L 138/81 99 Nasal Cannula 03/17/22 05:51 36.9 C 104 H 20 123/85 55 L Room Air O2 Flow Rate 03/17/22 11:36 2 03/17/22 11:25 2 03/17/22 10:55 03/17/22 10:45 03/17/22 10:35 03/17/22 10:25 03/17/22 10:15 2 03/17/22 10:05 2 03/17/22 09:55 2 03/17/22 09:45 3 03/17/22 09:39 3 03/17/22 05:51 Pain Intensity Left Knee: Pain Intensity: 7 Transfer of Care Handoff Completed per policy Notes Mental Status: alert / awake / arousable and participated in evaluation Patient Amnestic to Procedure: Yes Nausea / Vomiting: adequately controlled Pain: adequately controlled Airway Patency, RR, SpO2: stable & adequate BP & HR: stable & adequate Hydration State: stable & adequate Anesthetic Complications: no major complications apparent
[2022-03-17] MEDS: KETOROLAC TROMETHAMINE 15 MG/ML VIAL IV SCH ×3 (12:50→23:14)
[2022-03-17] MEDS: ACETAMINOPHEN 500 MG TAB PO SCH ×2 (14:20→20:58)
--- NOTE | 2022-03-17 15:42 | Orthopedic Progress Note ---
Date of Service March 17, 2022 Assessment & Plan (1) S/P total knee arthroplasty: Plan: POD 0 - left total knee arthroplasty with Dr. Ramirez Start Lovenox this evening for DVT prophylaxis. 30mg bid x 2-4 weeks after surgery PT/OT WBAT LLE with walker assistance and knee immobilizer on left knee when out of bed. Plan for dressing change and application of Prevena wound vac tomorrow morning. Case management for disposition. Plans for discharge to home tomorrow with HH. Regular diet as ordered. Will discuss findings with Dr. Ramirez and re-eval in AM. All questions answered. Admission and Anticipated Discharge Date Admission Date: March 17, 2022 Subjective lying in bed, at bedside. No complaints of pain in left knee, starting to feel some pain in thigh just above the knee. Did not have much of an appetite for lunch. No nausea or vomiting. States that she hasn't been out of bed yet as her legs still feel heavy. Feels like the sensation is returning. Physical Exam Musculoskeletal: left knee dressings clean dry and intact. Mild weakness in left great toe with dorsiflexion. Full dorsiflexion of ankle and normal strength. Sensation normal. No edema, distal pulses 1+. Mild weakness with plantarflexion of left ankle as compared to the other side. Results & Data ([facility]) Vital Signs (Past 12 Hours) Vital Signs Temp Pulse Pulse Resp BP Pulse Ox O2 Del Method 03/17/22 14:22 36.5 C 116 H 18 114/73 98 Nasal Cannula 03/17/22 13:31 106 H 18 124/80 97 Nasal Cannula 03/17/22 12:09 36.4 C L 109 H 16 119/79 98 03/17/22 11:36 109 H 16 132/79 97 Nasal Cannula 03/17/22 11:25 Nasal Cannula 03/17/22 10:55 36.7 C 114 H 16 130/85 94 Room Air 03/17/22 10:45 113 H 20 129/79 93 Room Air 03/17/22 10:35 111 H 12 130/79 93 Room Air 03/17/22 10:25 110 H 17 126/77 93 Room Air 03/17/22 10:15 113 H 20 129/84 96 Nasal Cannula 03/17/22 10:05 116 H 20 119/84 97 Nasal Cannula 03/17/22 09:55 118 H 16 131/80 96 Nasal Cannula 03/17/22 09:45 123 H 15 121/75 98 Nasal Cannula 03/17/22 09:39 36.9 C 120 H 10 L 138/81 99 Nasal Cannula 03/17/22 05:51 36.9 C 104 H 20 123/85 55 L Room Air O2 Flow Rate 03/17/22 14:22 1 03/17/22 13:31 2 03/17/22 12:09 03/17/22 11:36 2 03/17/22 11:25 2 03/17/22 10:55 03/17/22 10:45 03/17/22 10:35 03/17/22 10:25 03/17/22 10:15 2 03/17/22 10:05 2 03/17/22 09:55 2 03/17/22 09:45 3 03/17/22 09:39 3 03/17/22 05:51 Diagnostic Findings Xrays reviewed with patient and her . XR knee LT 1 or 2V routine CLINICAL HISTORY: Postoperative evaluation. COMPARISON: Left knee radiographs February 24, 2022. FINDINGS: Alignment of the total left knee arthroplasty is anatomic. There is no periprosthetic fracture or unexpected radiopaque foreign body. There are skin mauricio. IMPRESSION: Expected findings following total left knee arthroplasty.
[2022-03-17] MEDS: ceFAZolin 1000MG 1,000 MG/7.5 ML SYR IV SCH (20:53)
[2022-03-17] MEDS: DOCUSATE SODIUM 100 MG CAP PO SCH (20:54)
[2022-03-17] MEDS: PANTOprazole 40 MG TAB PO SCH (20:56)
[2022-03-17] MEDS: ENOXAPARIN INJ 30 MG/0.3 ML SYR SQ SCH (20:57)
[2022-03-17] MEDS ORDERED: PARoxetine HCL 20 MG TAB PO SCH (21:00)
[2022-03-17] MEDS ORDERED: hydrOXYzine HCl 25 MG TAB PO SCH (21:00)
[2022-03-17] MEDS ORDERED: SENNA 8.6 MG TAB PO SCH (21:00)
[2022-03-18] MEDS: SODIUM CHLORIDE 0.9% 1000ML 1,000 ML IV SCH (02:04)
[2022-03-18] MEDS: CHECK CLONIDINE PATCH PLACEMENT SCH ×2 (02:04→08:26)
[2022-03-18] MEDS: oxyCODONE HCL IR 5 MG TAB (IMMEDIATE RELEASE) PO PRN ×2 (03:25→11:15)
[2022-03-18] MEDS: ceFAZolin 1000MG 1,000 MG/7.5 ML SYR IV SCH (03:26)
[2022-03-18] MEDS: ACETAMINOPHEN 500 MG TAB PO SCH ×2 (05:46→14:11)
[2022-03-18] MEDS: KETOROLAC TROMETHAMINE 15 MG/ML VIAL IV SCH (05:46)
[2022-03-18 06:45] LABS: Hemoglobin 11.1 g/dl (12.0-16.0); Mean Corpuscular Hemoglobin 32.1 pg (25.0-34.0); Mean Corpuscular Hgb Conc 33.6 g/dL (32.0-36.0); Mean Corpuscular Volume 95.4 fL (80.0-100.0); Platelet Count 233 K/uL (130-400); RDW Coefficient of Variation 12.3 % (11.5-14.5); RDW Standard Deviation 42.7 fL (36.4-46.3); Red Blood Count 3.46 M/uL (3.93-5.22); White Blood Count 12.04 K/ul (4.8-10.8)
[2022-03-18 07:42] LABS: BUN Creatinine Ratio 19.4 (10-20); Calcium 8.4 mg/dl (8.5-10.1); Creatinine Clr Calc Pharmacy 53.7 ml/min; Est GFR (African American) 69.2 ml/min; Est GFR (Non-African American) 59.7 ml/min; Potassium 3.9 mmol/L (3.5-5.1)
[2022-03-18] MEDS ORDERED: dexAMETHasone 4 MG TAB PO SCH (08:00)
[2022-03-18] MEDS: DOCUSATE SODIUM 100 MG CAP PO SCH (08:26)
[2022-03-18] MEDS: PANTOprazole 40 MG TAB PO SCH (08:29)
[2022-03-18] MEDS ORDERED: MULTIVITAMIN TAB PO SCH (09:00)
[2022-03-18] MEDS ORDERED: MAGNESIUM OXIDE 400 MG TAB PO SCH (09:00)
[2022-03-18] MEDS ORDERED: CHOLECALCIFEROL 5,000 UNITS 125 MCG TAB PO SCH (09:00)
[2022-03-18] MEDS ORDERED: LEVOTHYROXINE SODIUM 75 MCG TABLET PO SCH (09:00)
[2022-03-18] MEDS ORDERED: PARoxetine HCL 10 MG TAB PO SCH (09:00)
[2022-03-18] MEDS ORDERED: estradioL 1 MG TAB PO SCH (09:00)
[2022-03-18] MEDS: ENOXAPARIN INJ 30 MG/0.3 ML SYR SQ SCH (09:19)
--- NOTE | 2022-03-18 11:32 | Progress Notes ---
DATE OF SERVICE: 03/18/2022 The patient is resting comfortably in bed. Her pain is well controlled. I discussed with her the re sults of surgery and the findings. She is afebrile. Her vital signs are stable. Her pulse is a lit tle bit elevated. On exam, she has 1+ DP and PT pulses. She has normal sensation throughout the foot and has 5/5 ankle and toe plantar flexion, dorsiflexion, inversion and eversion strength. Her dressing is changed. H er incision is benign. There is no significant hematoma formation within or out of the knee. There is no drainage. An incisional wound VAC is applied. She is postop day #1, status post a left knee replacement. Lovenox for DVT prophylaxis. PT and OT. If her pain is controlled and she does well with PT, she can be discharged home with home health ser vices. Bathing instructions, rest, elevation, pain medication instructions and follow up are discuss ed. Job ID: [id number]
--- NOTE | 2022-03-18 12:04 | Discharge Summary ---
Date of Service March 18, 2022 Discharge Data Procedures Performed Operation Date: 03/17/22 07:00 Actual Procedures p Left Total Knee Arthroplasty(Left) - Maximo Ramirez MD Hospital Course (1) S/P total knee arthroplasty: Patient was admitted to [facility] after undergoing an elective left total knee arthroplasty on March 17, [address] Maximo Ramirez. Surgery was performed with IV sedation, spinal anesthesia and a peripheral nerve block. She tolerated the procedure well without any intraoperative complications. She was allowed out of bed, weight-bear as tolerated left lower extremity with the assistance of a walker and a knee immobilizer. She was given 2 g of IV Ancef for surgical prophylaxis and this was continued for 24 hours after surgery. She was seen and evaluated by physical therapy and Occupational Therapy after her surgery. On postoperative day 1 her dressings were changed and a Prevena wound VAC was placed to her left knee. Discharge instructions were reviewed. She was placed on Lovenox 30 mg twice daily for DVT prophylaxis. This will be continued for 2 to 4 weeks after surgery. She is also given thigh-high GIUSEPPE stockings and AV impulse boots. She was allowed out of bed with assistance. Her postoperative x-rays in the recovery room showed a stable prosthesis. Postoperative lab work was performed on day 1 and showed some mild acute blood loss anemia. This was monitored and she was asymptomatic. We will continue to follow her CBC as an outpatient. Case management was involved for disposition needs. She was set up with home health preoperatively. She was given Tylenol, tramadol, Toradol, oxycodone and IV Dilaudid as needed for pain medicine. Her pain was well controlled after surgery. She was stable for discharge and was discharged to her home in stable condition on March 18, 2022 with her . Discharge instructions were reviewed. She does have a postoperative follow-up scheduled appropriately.
== END 2022-03-18 16:05 | disposition home health service (06) ==
LOC: ASU 05:10 → 3E 05:10
DX: Z88.5 Allergy status to narcotic agent; Z88.8 Allergy status to other drugs, medicaments and biological substances; M17.12 Unilateral primary osteoarthritis, left knee; Z91.040 Latex allergy status; Z79.899 Other long term (current) drug therapy